=== PATIENT | male | born 1980 | race Caucasian/White ===

== ENCOUNTER 2020-03-25 14:26 | Inpatient (IN) | payer OTHER, SELFPAY ==
[~2020-03-25] VITALS: Ht 177.8 cm; Wt 96.6 kg
[2020-03-25 14:34] VITALS: BP_SYST 149
[2020-03-25] MEDS ORDERED: AMLO5TAB4 PO (14:39)
[2020-03-25] MEDS ORDERED: DEXAMETHASONE SOD PHOSPHATE 10 MG/ML VIAL IVP ONE (14:45)
[2020-03-25] MEDS ORDERED: NACL 0.9% 1,000 ML IV ONE (14:45)
[2020-03-25] MEDS ORDERED: cefTRIAXone 1 GM IVPB PREMIX 50 ML IV ONE (14:45)
[2020-03-25] MEDS ORDERED: DEXAMETHASONE SOD PHOSPHATE 10 MG/ML VIAL ONE (14:48)
[2020-03-25 14:56] LABS: BASOPHILS % (AUTO) 0.3 % (0.0-2.0); HEMATOCRIT 43.5 % (36-54); HEMOGLOBIN 15.1 g/dL (14.0-18.0); LYMPHOCYTES # (AUTO) 0.9 K/uL (1.0-5.5); LYMPHOCYTES % (AUTO) 17.6 % (20.5-51.5); MEAN CORPUSCULAR HEMOGLOBIN 29 pg (27-31); MEAN CORPUSCULAR HGB CONC 35 % (32-36); MEAN CORPUSCULAR VOLUME 83 fL (79.0-98.0); MONOCYTES # (AUTO) 0.3 K/uL (0.0-1.0); MONOCYTES % (AUTO) 6.2 % (1.7-9.3); NEUTROPHILS % (AUTO) 75.9 % (40.0-70.0); PLATELET COUNT (AUTO) 157 K/uL (130-430); RED BLOOD CELL COUNT(AUTO) 5.26 MIL/uL (4.2-6.2); RED CELL DISTRIBUTION WIDTH 13.6 % (9.0-15.0); WHITE BLOOD COUNT (AUTO) 5.3 K/uL (4.8-10.8)
[2020-03-25 15:34] LABS: CALCIUM 8.1 mg/dL (8.4-11.0); CREATININE 1.01 mg/dL (0.55-1.30); POTASSIUM 3.9 mmol/L (3.5-5.1); PROTHROMBIN TIME 9.9 SECS (9.5-12.5)
[2020-03-25 15:52] LABS: ALBUMIN 3.3 g/dL (3.4-4.8); TOTAL BILIRUBIN 0.4 mg/dL (0.0-1.0)
[2020-03-25 16:14] LABS: CREATINE KINASE MB 0.7 ng/mL (0-3.6)
[2020-03-25] MEDS ORDERED: ENALAPRILAT DIHYDRATE 1.25 MG/ML VIAL IVP ONE (16:15)
[2020-03-25] MEDS ORDERED: ACETAMINOPHEN 500 MG TABLET PO ONE (17:15)
[2020-03-25] MEDS ORDERED: ENOXAPARIN SODIUM 100 MG/ML SYRINGE SUBCUT ONE (18:00)
[2020-03-25] MEDS ORDERED: ALBUTEROL SULFATE 0.083% 2.5 MG/3 ML VIAL.NEB INH PRN (18:30)
[2020-03-25] MEDS ORDERED: DEXAMETHASONE SOD PHOSPHATE 10 MG/ML VIAL IVP SCH (18:30)
[2020-03-25] MEDS ORDERED: IPRATROPIUM BROM 0.5 MG/2.5 ML VIAL.NEB (ATROVENT) INH PRN (18:30)
[2020-03-25] MEDS ORDERED: DEXAMETHASONE SOD PHOSPHATE 4 MG/ML VIAL IVP ONE (18:45)
[2020-03-25] MEDS ORDERED: DOXYCYCLINE HYCLATE 100 MG in D5W 100 ML IV SCH (18:45)
[2020-03-25 19:00] LABS: C-REACTIVE PROTEIN QUANT 11.3 mg/dL (0-0.5)
[2020-03-25] MEDS ORDERED: IVERMECTIN 3 MG TABLET PO ONE (19:00)
[2020-03-25] MEDS ORDERED: ALBUTEROL SULFATE 0.083% 2.5 MG/3 ML VIAL.NEB INH SCH (19:00)
[2020-03-25] MEDS ORDERED: IPRATROPIUM BROM 0.5 MG/2.5 ML VIAL.NEB (ATROVENT) INH SCH (19:00)
[2020-03-25] MEDS ORDERED: DOXYCYCLINE HYCLATE 100 MG in D5W 100 ML IV ONE (19:00)
[2020-03-25] MEDS ORDERED: AZITHROMYCIN 500 MG in NS 250 ML IV SCH (19:00)
[2020-03-25] MEDS ORDERED: DEXAMETHASONE SOD PHOSPHATE 4 MG/ML VIAL ONE (19:54)
[2020-03-25] MEDS: ALBUTEROL MDI INHALATION 8 GM INH INH SCH (21:00)
[2020-03-26] VITALS (19 sets, daily range): BP systolic 135–168
[2020-03-26 04:48] LABS: ALBUMIN 2.8 g/dL (3.4-4.8); CALCIUM 8.5 mg/dL (8.4-11.0); CREATININE 1.01 mg/dL (0.55-1.30); POTASSIUM 4.3 mmol/L (3.5-5.1); TOTAL BILIRUBIN 0.3 mg/dL (0.0-1.0)
[2020-03-26 05:33] LABS: CKMB RELATIVE INDEX 0.1 (0.0-2.9); CREATINE KINASE MB 1.1 ng/mL (0-3.6)
[2020-03-26] MEDS ORDERED: DEXAMETHASONE SOD PHOSPHATE 10 MG/ML VIAL ONE (07:54)
[2020-03-26] MEDS ORDERED: ENOXAPARIN SODIUM 40 MG/0.4 ML SYRINGE ONE (07:54)
[2020-03-26] MEDS: cefTRIAXone 1 GM in D5W 50 ML IV SCH (07:54)
[2020-03-26] MEDS: ENOXAPARIN SODIUM 40 MG/0.4 ML SYRINGE SUBCUT SCH ×2 (07:55→21:01)
[2020-03-26] MEDS: DEXAMETHASONE SOD PHOSPHATE 10 MG/ML VIAL IVP SCH (07:55)
[2020-03-26] MEDS: DOXYCYCLINE HYCLATE 100 MG in D5W 100 ML IV SCH ×2 (08:58→21:04)
[2020-03-26] MEDS ORDERED: BARICITINIB -Non-Formulary 2 MG TABLET PO ONE (09:00)
[2020-03-26] MEDS: ALBUTEROL MDI INHALATION 8 GM INH INH SCH ×4 (09:00→21:03)
[2020-03-26] MEDS ORDERED: DEXAMETHASONE SOD PHOSPHATE 10 MG/ML VIAL IVP ONE (09:00)
[2020-03-26] MEDS: NACL 0.9% 1,000 ML IV SCH ×2 (09:41→21:04)
[2020-03-26 11:39] LABS: PROTHROMBIN TIME 9.8 SECS (9.5-12.5)
[2020-03-27] VITALS (24 sets, daily range): BP systolic 146–179
[2020-03-27 06:37] LABS: ALBUMIN 2.8 g/dL (3.4-4.8); CALCIUM 8.6 mg/dL (8.4-11.0); CREATININE 0.86 mg/dL (0.55-1.30); POTASSIUM 4.1 mmol/L (3.5-5.1); TOTAL BILIRUBIN 0.5 mg/dL (0.0-1.0)
[2020-03-27] MEDS: DEXAMETHASONE SOD PHOSPHATE 10 MG/ML VIAL IVP SCH (08:06)
[2020-03-27] MEDS: cefTRIAXone 1 GM in D5W 50 ML IV SCH (08:06)
[2020-03-27] MEDS: ENOXAPARIN SODIUM 40 MG/0.4 ML SYRINGE SUBCUT SCH ×2 (08:06→21:00)
[2020-03-27] MEDS: DOXYCYCLINE HYCLATE 100 MG in D5W 100 ML IV SCH ×2 (09:00→21:01)
[2020-03-27] MEDS: ALBUTEROL MDI INHALATION 8 GM INH INH SCH ×4 (09:00→21:00)
[2020-03-27] MEDS ORDERED: IVERMECTIN 3 MG TABLET PO ONE (09:00)
[2020-03-27] MEDS: NACL 0.9% 1,000 ML IV SCH (11:59)
[2020-03-27] MEDS ORDERED: hydrALAZINE HCL 20 MG/ML VIAL ONE (13:23)
[2020-03-27] MEDS: hydrALAZINE HCL 20 MG/ML VIAL IVP PRN (22:13)
[2020-03-28] VITALS (23 sets, daily range): BP systolic 144–184
[2020-03-28] MEDS: hydrALAZINE HCL 20 MG/ML VIAL IVP PRN (06:15)
[2020-03-28] MEDS: NACL 0.9% 1,000 ML IV SCH ×2 (06:16→14:47)
[2020-03-28 06:51] LABS: ALBUMIN 2.9 g/dL (3.4-4.8); CALCIUM 8.6 mg/dL (8.4-11.0); CREATININE 0.67 mg/dL (0.55-1.30); POTASSIUM 3.7 mmol/L (3.5-5.1); TOTAL BILIRUBIN 0.7 mg/dL (0.0-1.0)
[2020-03-28] MEDS: cefTRIAXone 1 GM in D5W 50 ML IV SCH (08:15)
[2020-03-28] MEDS: ALBUTEROL MDI INHALATION 8 GM INH INH SCH ×4 (08:46→20:46)
[2020-03-28] MEDS: DEXAMETHASONE SOD PHOSPHATE 10 MG/ML VIAL IVP SCH (08:55)
[2020-03-28] MEDS: ENOXAPARIN SODIUM 40 MG/0.4 ML SYRINGE SUBCUT SCH ×2 (08:55→20:47)
[2020-03-28] MEDS: BARICITINIB -Non-Formulary 2 MG TABLET PO SCH (08:55)
[2020-03-28] MEDS: DOXYCYCLINE HYCLATE 100 MG in D5W 100 ML IV SCH ×2 (09:23→20:46)
[2020-03-28] MEDS: LABETALOL 100 MG/ 20ML VIAL IVP PRN ×2 (11:13→15:43)
[2020-03-29] VITALS (25 sets, daily range): BP systolic 104–183
[2020-03-29] MEDS: LABETALOL 100 MG/ 20ML VIAL IVP PRN ×3 (02:21→20:15)
[2020-03-29] MEDS: NACL 0.9% 1,000 ML IV SCH ×2 (04:42→17:00)
[2020-03-29 06:41] LABS: BASOPHILS % (AUTO) 0.1 % (0.0-2.0); HEMATOCRIT 45.7 % (36-54); HEMOGLOBIN 15.2 g/dL (14.0-18.0); LYMPHOCYTES % (AUTO) 8.7 % (20.5-51.5); MEAN CORPUSCULAR HEMOGLOBIN 28 pg (27-31); MEAN CORPUSCULAR HGB CONC 33 % (32-36); MEAN CORPUSCULAR VOLUME 85 fL (79.0-98.0); MONOCYTES # (AUTO) 0.8 K/uL (0.0-1.0); MONOCYTES % (AUTO) 6.9 % (1.7-9.3); NEUTROPHILS # (AUTO) 9.4 K/uL (1.8-7.7); NEUTROPHILS % (AUTO) 84.3 % (40.0-70.0); PLATELET COUNT (AUTO) 259 K/uL (130-430); RED BLOOD CELL COUNT(AUTO) 5.38 MIL/uL (4.2-6.2); RED CELL DISTRIBUTION WIDTH 13.9 % (9.0-15.0); WHITE BLOOD COUNT (AUTO) 11.2 K/uL (4.8-10.8)
[2020-03-29 07:15] LABS: ALBUMIN 2.9 g/dL (3.4-4.8); CALCIUM 8.6 mg/dL (8.4-11.0); CREATININE 0.71 mg/dL (0.55-1.30); TOTAL BILIRUBIN 0.8 mg/dL (0.0-1.0)
[2020-03-29] MEDS: BARICITINIB -Non-Formulary 2 MG TABLET PO SCH (08:00)
[2020-03-29] MEDS: cefTRIAXone 1 GM in D5W 50 ML IV SCH (08:15)
[2020-03-29] MEDS: DOXYCYCLINE HYCLATE 100 MG in D5W 100 ML IV SCH ×2 (08:30→21:00)
[2020-03-29] MEDS: DEXAMETHASONE SOD PHOSPHATE 10 MG/ML VIAL IVP SCH (08:30)
[2020-03-29] MEDS: ENOXAPARIN SODIUM 40 MG/0.4 ML SYRINGE SUBCUT SCH ×2 (09:00→20:15)
[2020-03-29] MEDS: ALBUTEROL MDI INHALATION 8 GM INH INH SCH ×4 (09:21→20:32)
[2020-03-29] MEDS: hydrALAZINE HCL 20 MG/ML VIAL IVP PRN ×2 (09:40→22:00)
[2020-03-29 09:46] LABS: ALBUMIN 2.9 g/dL (3.4-4.8); CALCIUM 8.3 mg/dL (8.4-11.0); CREATININE 0.76 mg/dL (0.55-1.30); POTASSIUM 3.9 mmol/L (3.5-5.1)
[2020-03-30] VITALS (26 sets, daily range): BP systolic 138–193
[2020-03-30] MEDS: NACL 0.9% 1,000 ML IV SCH ×3 (03:54→19:40)
[2020-03-30] MEDS: LABETALOL 100 MG/ 20ML VIAL IVP PRN ×2 (06:29→20:30)
[2020-03-30] MEDS: ALBUTEROL MDI INHALATION 8 GM INH INH SCH ×4 (08:14→22:27)
[2020-03-30 08:47] LABS: ALBUMIN 2.6 g/dL (3.4-4.8); CALCIUM 8.4 mg/dL (8.4-11.0); CREATININE 0.72 mg/dL (0.55-1.30); TOTAL BILIRUBIN 0.8 mg/dL (0.0-1.0)
[2020-03-30] MEDS: DOXYCYCLINE HYCLATE 100 MG in D5W 100 ML IV SCH ×2 (09:00→21:33)
[2020-03-30] MEDS: cefTRIAXone 1 GM in D5W 50 ML IV SCH (09:00)
[2020-03-30] MEDS: ENOXAPARIN SODIUM 40 MG/0.4 ML SYRINGE SUBCUT SCH ×2 (09:00→21:34)
[2020-03-30] MEDS: BARICITINIB -Non-Formulary 2 MG TABLET PO SCH (09:00)
[2020-03-30] MEDS: DEXAMETHASONE SOD PHOSPHATE 10 MG/ML VIAL IVP SCH (09:00)
[2020-03-30] MEDS: hydrALAZINE HCL 20 MG/ML VIAL IVP PRN (22:11)
[2020-03-31] VITALS (21 sets, daily range): BP systolic 134–185
[2020-03-31] MEDS: LABETALOL 100 MG/ 20ML VIAL IVP PRN (01:30)
[2020-03-31] MEDS: hydrALAZINE HCL 20 MG/ML VIAL IVP PRN ×2 (05:00→10:20)
[2020-03-31 05:54] LABS: ALBUMIN 2.7 g/dL (3.4-4.8); CALCIUM 8.8 mg/dL (8.4-11.0); CREATININE 0.8 mg/dL (0.55-1.30); POTASSIUM 4.3 mmol/L (3.5-5.1); TOTAL BILIRUBIN 0.9 mg/dL (0.0-1.0)
[2020-03-31] MEDS: NACL 0.9% 1,000 ML IV SCH ×2 (08:49→22:20)
[2020-03-31] MEDS: cefTRIAXone 1 GM in D5W 50 ML IV SCH (08:49)
[2020-03-31] MEDS: DOXYCYCLINE HYCLATE 100 MG in D5W 100 ML IV SCH ×2 (08:49→20:25)
[2020-03-31] MEDS: ALBUTEROL MDI INHALATION 8 GM INH INH SCH ×5 (08:49→22:40)
[2020-03-31] MEDS: DEXAMETHASONE SOD PHOSPHATE 10 MG/ML VIAL IVP SCH (08:52)
[2020-03-31] MEDS: BARICITINIB -Non-Formulary 2 MG TABLET PO SCH (08:52)
[2020-03-31] MEDS ORDERED: DEXAMETHASONE SOD PHOSPHATE 10 MG/ML VIAL ONE (08:53)
[2020-03-31] MEDS: ENOXAPARIN SODIUM 40 MG/0.4 ML SYRINGE SUBCUT SCH ×2 (08:53→20:25)
[2020-03-31] MEDS ORDERED: PROPOFOL DRIP 100 ML IV ONE (13:25)
[2020-04-01] VITALS (22 sets, daily range): BP systolic 116–178
[2020-04-01] MEDS: LABETALOL 100 MG/ 20ML VIAL IVP PRN (04:34)
[2020-04-01 06:54] LABS: BASOPHILS % (AUTO) 0.2 % (0.0-2.0); EOSINOPHILS % (AUTO) 0.1 % (0.0-4.0); HEMATOCRIT 43.6 % (36-54); HEMOGLOBIN 14.7 g/dL (14.0-18.0); LYMPHOCYTES # (AUTO) 0.7 K/uL (1.0-5.5); LYMPHOCYTES % (AUTO) 6.3 % (20.5-51.5); MEAN CORPUSCULAR HEMOGLOBIN 28 pg (27-31); MEAN CORPUSCULAR HGB CONC 34 % (32-36); MEAN CORPUSCULAR VOLUME 84 fL (79.0-98.0); MONOCYTES # (AUTO) 0.5 K/uL (0.0-1.0); MONOCYTES % (AUTO) 4.3 % (1.7-9.3); NEUTROPHILS # (AUTO) 9.9 K/uL (1.8-7.7); NEUTROPHILS % (AUTO) 89.1 % (40.0-70.0); PLATELET COUNT (AUTO) 359 K/uL (130-430); RED BLOOD CELL COUNT(AUTO) 5.17 MIL/uL (4.2-6.2); RED CELL DISTRIBUTION WIDTH 13.7 % (9.0-15.0); WHITE BLOOD COUNT (AUTO) 11.1 K/uL (4.8-10.8)
[2020-04-01] MEDS: ALBUTEROL MDI INHALATION 8 GM INH INH SCH ×3 (07:07→16:16)
[2020-04-01 07:19] LABS: ALBUMIN 2.5 g/dL (3.4-4.8); CALCIUM 8.6 mg/dL (8.4-11.0); CREATININE 0.81 mg/dL (0.55-1.30); POTASSIUM 4.4 mmol/L (3.5-5.1); TOTAL BILIRUBIN 0.9 mg/dL (0.0-1.0)
[2020-04-01] MEDS ORDERED: MORPHINE 4 MG/ML INJ. SYRINGE IVP PRN (08:45)
[2020-04-01] MEDS ORDERED: DEXMEDETOMIDINE HCL 400 MCG in NS 96 ML IV PRN (08:45)
[2020-04-01] MEDS: DEXAMETHASONE SOD PHOSPHATE 10 MG/ML VIAL IVP SCH (08:55)
[2020-04-01] MEDS: DOXYCYCLINE HYCLATE 100 MG in D5W 100 ML IV SCH ×2 (08:56→20:45)
[2020-04-01] MEDS: cefTRIAXone 1 GM in D5W 50 ML IV SCH (08:56)
[2020-04-01] MEDS: ENOXAPARIN SODIUM 40 MG/0.4 ML SYRINGE SUBCUT SCH ×2 (08:58→20:46)
[2020-04-01] MEDS: BARICITINIB -Non-Formulary 2 MG TABLET PO SCH (09:00)
[2020-04-01] MEDS: NACL 0.9% 1,000 ML IV SCH (11:40)
[2020-04-02] VITALS (27 sets, daily range): BP systolic 75–173
[2020-04-02] MEDS: NACL 0.9% 1,000 ML IV SCH ×2 (01:35→15:35)
[2020-04-02 05:07] LABS: HEPATITIS A AB, IgM Negative (Negative); HEPATITIS B CORE AB, IgM Negative (Negative); HEPATITIS B SURFACE AG Negative (Negative)
[2020-04-02 06:55] LABS: ALBUMIN 2.4 g/dL (3.4-4.8); CALCIUM 8.8 mg/dL (8.4-11.0); CREATININE 0.83 mg/dL (0.55-1.30); POTASSIUM 4.5 mmol/L (3.5-5.1)
[2020-04-02] MEDS ORDERED: NALOXONE HCL 0.4 MG/ML AMP (NARCAN) IVP PRN (08:30)
[2020-04-02] MEDS ORDERED: MORPHINE I.V. DRIP 100 ML IV ONE (08:37)
[2020-04-02] MEDS ORDERED: PROPOFOL DRIP 100 ML IV ONE (08:38)
[2020-04-02] MEDS: DOXYCYCLINE HYCLATE 100 MG in D5W 100 ML IV SCH ×2 (09:56→20:46)
[2020-04-02] MEDS: DEXAMETHASONE SOD PHOSPHATE 10 MG/ML VIAL IVP SCH (09:57)
[2020-04-02] MEDS: ENOXAPARIN SODIUM 40 MG/0.4 ML SYRINGE SUBCUT SCH ×2 (09:58→20:58)
[2020-04-02] MEDS ORDERED: ETOMIDATE 20 MG/ 10 ML VIAL (AMIDATE) IVP ONE (10:09)
[2020-04-02] MEDS: ROCURONIUM BROMIDE 10 MG/ML (ZEMURON) IV SCH ×4 (10:09→21:04)
[2020-04-02] MEDS ORDERED: ROCURONIUM BROMIDE 10 MG/ML (ZEMURON) IV ONE (10:09)
[2020-04-02] MEDS: PROPOFOL DRIP 100 ML IV PRN ×2 (10:17→21:10)
[2020-04-02] MEDS: MORPHINE I.V. DRIP 100 ML IV PRN (10:19)
[2020-04-02] MEDS: ALBUTEROL MDI INHALATION 8 GM INH INH SCH ×2 (11:43→15:30)
[2020-04-02] MEDS: BARICITINIB -Non-Formulary 2 MG TABLET PO SCH (15:38)
[2020-04-02] MEDS ORDERED: NOREPINEPHRINE BITARTRATE 16 MG in NS 234 ML IV PRN (16:45)
[2020-04-02] MEDS ORDERED: NACL 0.9% 1,000 ML IV ONE (16:45)
[2020-04-02] MEDS: SODIUM BICARBONATE 650 MG TABLET NG SCH (20:58)
[2020-04-03] VITALS (26 sets, daily range): BP systolic 99–157
[2020-04-03] MEDS: ROCURONIUM BROMIDE 10 MG/ML (ZEMURON) IV SCH ×4 (02:00→14:00)
[2020-04-03] MEDS: PROPOFOL DRIP 100 ML IV PRN ×5 (03:08→22:29)
[2020-04-03] MEDS: NACL 0.9% 1,000 ML IV SCH ×2 (03:40→18:28)
[2020-04-03 07:04] LABS: ALBUMIN 2.2 g/dL (3.4-4.8); CALCIUM 7.9 mg/dL (8.4-11.0); CREATININE 3.45 mg/dL (0.55-1.30); TOTAL BILIRUBIN 1.3 mg/dL (0.0-1.0)
[2020-04-03] MEDS: ALBUTEROL MDI INHALATION 8 GM INH INH SCH ×3 (07:40→19:45)
[2020-04-03 07:56] LABS: POTASSIUM 6.4 mmol/L (3.5-5.1)
[2020-04-03] MEDS ORDERED: HEPARIN SODIUM,PORCINE 5,000 UNITS/ML VIAL ONE ×2 (08:19→19:41)
[2020-04-03] MEDS ORDERED: SODIUM POLYSTYRENE SULFONATE 15 GM/60 ML UDBTL PO ONE (08:30)
[2020-04-03] MEDS: SODIUM BICARBONATE 650 MG TABLET NG SCH ×2 (08:38→20:27)
[2020-04-03] MEDS: ENOXAPARIN SODIUM 40 MG/0.4 ML SYRINGE SUBCUT SCH (08:39)
[2020-04-03] MEDS: DEXAMETHASONE SOD PHOSPHATE 10 MG/ML VIAL IVP SCH (08:40)
[2020-04-03] MEDS: BARICITINIB -Non-Formulary 2 MG TABLET PO SCH (08:41)
[2020-04-03] MEDS ORDERED: CALCIUM GLUCONATE 2 GM in NS 100 ML IV ONE (08:45)
[2020-04-03] MEDS ORDERED: LR 500 ML IV ONE (09:30)
[2020-04-03] MEDS ORDERED: FUROSEMIDE 40 MG/4 ML VIAL IVP ONE (10:00)
[2020-04-03] MEDS ORDERED: CALCIUM GLUCONATE 1 GM/10 ML VIAL IVP ONE (10:00)
[2020-04-03] MEDS: DOXYCYCLINE HYCLATE 100 MG in D5W 100 ML IV SCH ×2 (10:30→20:27)
[2020-04-03] MEDS ORDERED: MIDAZOLAM HCL IN 0.9 % NACL/PF 50 ML IV PRN (12:00)
[2020-04-03] MEDS ORDERED: MIDAZOLAM IN NACL,ISO-OSMOT/PF 100 ML IV ONE (12:01)
[2020-04-03] MEDS ORDERED: COMMUNICATION ORDER XX ONE (12:15)
[2020-04-04] VITALS (32 sets, daily range): BP systolic 100–159
[2020-04-04] MEDS ORDERED: HEPARIN SODIUM, PORCINE 10,000 UNITS/ 10 ML VIAL MC ONE (02:00)
[2020-04-04] MEDS: PROPOFOL DRIP 100 ML IV PRN ×3 (04:12→21:37)
[2020-04-04] MEDS: NACL 0.9% 1,000 ML IV SCH ×2 (06:34→19:40)
[2020-04-04] MEDS: ALBUTEROL MDI INHALATION 8 GM INH INH SCH ×4 (07:30→21:16)
[2020-04-04] MEDS: DOXYCYCLINE HYCLATE 100 MG in D5W 100 ML IV SCH ×2 (09:16→20:53)
[2020-04-04] MEDS: DEXAMETHASONE SOD PHOSPHATE 10 MG/ML VIAL IVP SCH (09:16)
[2020-04-04] MEDS: SODIUM BICARBONATE 650 MG TABLET NG SCH ×2 (09:16→20:54)
[2020-04-04 10:53] LABS: BASOPHILS # (AUTO) 0.1 K/uL (0.0-0.2); BASOPHILS % (AUTO) 0.5 % (0.0-2.0); HEMATOCRIT 40.5 % (36-54); HEMOGLOBIN 13.5 g/dL (14.0-18.0); LYMPHOCYTES # (AUTO) 0.5 K/uL (1.0-5.5); LYMPHOCYTES % (AUTO) 4.4 % (20.5-51.5); MEAN CORPUSCULAR HEMOGLOBIN 29 pg (27-31); MEAN CORPUSCULAR HGB CONC 33 % (32-36); MEAN CORPUSCULAR VOLUME 86 fL (79.0-98.0); MONOCYTES # (AUTO) 0.7 K/uL (0.0-1.0); MONOCYTES % (AUTO) 5.9 % (1.7-9.3); NEUTROPHILS # (AUTO) 10.9 K/uL (1.8-7.7); NEUTROPHILS % (AUTO) 89.2 % (40.0-70.0); PLATELET COUNT (AUTO) 323 K/uL (130-430); RED CELL DISTRIBUTION WIDTH 14.2 % (9.0-15.0); WHITE BLOOD COUNT (AUTO) 12.3 K/uL (4.8-10.8)
[2020-04-04 11:03] LABS: CREATININE 4.4 mg/dL (0.55-1.30); POTASSIUM 4.3 mmol/L (3.5-5.1)
[2020-04-04 11:09] LABS: ALBUMIN 2.4 g/dL (3.4-4.8)
[2020-04-04] MEDS ORDERED: HEPARIN SODIUM,PORCINE 5,000 UNITS/ML VIAL ONE (13:11)
[2020-04-04] MEDS ORDERED: MIDAZOLAM IN NACL,ISO-OSMOT/PF 100 ML IV ONE (14:53)
[2020-04-05] VITALS (29 sets, daily range): BP systolic 109–177
[2020-04-05] MEDS: hydrALAZINE HCL 20 MG/ML VIAL IVP PRN (05:36)
[2020-04-05] MEDS: PROPOFOL DRIP 100 ML IV PRN (06:03)
[2020-04-05 06:52] LABS: ALBUMIN 2.5 g/dL (3.4-4.8); CALCIUM 8.5 mg/dL (8.4-11.0); CREATININE 4.77 mg/dL (0.55-1.30); POTASSIUM 3.8 mmol/L (3.5-5.1); TOTAL BILIRUBIN 1.1 mg/dL (0.0-1.0)
[2020-04-05] MEDS: MORPHINE I.V. DRIP 100 ML IV PRN (07:15)
[2020-04-05] MEDS ORDERED: VECURONIUM BROMIDE 10 MG/VIAL (NORCURON) ONE (07:27)
[2020-04-05] MEDS: ALBUTEROL MDI INHALATION 8 GM INH INH SCH ×4 (07:38→18:54)
[2020-04-05] MEDS: NACL 0.9% 1,000 ML IV SCH ×2 (07:50→23:07)
[2020-04-05] MEDS: SODIUM BICARBONATE 650 MG TABLET NG SCH ×2 (07:54→21:00)
[2020-04-05] MEDS: DEXAMETHASONE SOD PHOSPHATE 10 MG/ML VIAL IVP SCH (07:54)
[2020-04-05 08:45] LABS: BASOPHILS # (AUTO) 0.1 K/uL (0.0-0.2); BASOPHILS % (AUTO) 0.3 % (0.0-2.0); EOSINOPHILS % (AUTO) 0.3 % (0.0-4.0); HEMATOCRIT 40.3 % (36-54); HEMOGLOBIN 13.2 g/dL (14.0-18.0); LYMPHOCYTES # (AUTO) 1.6 K/uL (1.0-5.5); LYMPHOCYTES % (AUTO) 9.6 % (20.5-51.5); MEAN CORPUSCULAR HEMOGLOBIN 28 pg (27-31); MEAN CORPUSCULAR HGB CONC 33 % (32-36); MEAN CORPUSCULAR VOLUME 86 fL (79.0-98.0); MONOCYTES # (AUTO) 0.5 K/uL (0.0-1.0); MONOCYTES % (AUTO) 2.9 % (1.7-9.3); NEUTROPHILS # (AUTO) 14.6 K/uL (1.8-7.7); NEUTROPHILS % (AUTO) 86.9 % (40.0-70.0); PLATELET COUNT (AUTO) 346 K/uL (130-430); RED BLOOD CELL COUNT(AUTO) 4.68 MIL/uL (4.2-6.2); RED CELL DISTRIBUTION WIDTH 14.1 % (9.0-15.0); WHITE BLOOD COUNT (AUTO) 16.9 K/uL (4.8-10.8)
[2020-04-06] VITALS (29 sets, daily range): BP systolic 103–150
[2020-04-06] MEDS ORDERED: VECURONIUM BROMIDE 10 MG/VIAL (NORCURON) ONE (01:35)
[2020-04-06] MEDS ORDERED: MIDAZOLAM IN NACL,ISO-OSMOT/PF 100 ML IV ONE (02:52)
[2020-04-06] MEDS: ALBUTEROL MDI INHALATION 8 GM INH INH SCH ×4 (07:12→19:27)
[2020-04-06] MEDS: DEXAMETHASONE SOD PHOSPHATE 10 MG/ML VIAL IVP SCH (08:19)
[2020-04-06] MEDS: SODIUM BICARBONATE 650 MG TABLET NG SCH ×2 (08:19→21:51)
[2020-04-06 09:44] LABS: BASOPHILS % (AUTO) 0.2 % (0.0-2.0); EOSINOPHILS % (AUTO) 0.2 % (0.0-4.0); HEMATOCRIT 35.4 % (36-54); HEMOGLOBIN 11.7 g/dL (14.0-18.0); LYMPHOCYTES # (AUTO) 0.9 K/uL (1.0-5.5); LYMPHOCYTES % (AUTO) 8.4 % (20.5-51.5); MEAN CORPUSCULAR HEMOGLOBIN 28 pg (27-31); MEAN CORPUSCULAR HGB CONC 33 % (32-36); MEAN CORPUSCULAR VOLUME 86 fL (79.0-98.0); MONOCYTES # (AUTO) 0.5 K/uL (0.0-1.0); MONOCYTES % (AUTO) 4.5 % (1.7-9.3); NEUTROPHILS # (AUTO) 9.3 K/uL (1.8-7.7); NEUTROPHILS % (AUTO) 86.7 % (40.0-70.0); PLATELET COUNT (AUTO) 238 K/uL (130-430); RED BLOOD CELL COUNT(AUTO) 4.11 MIL/uL (4.2-6.2); RED CELL DISTRIBUTION WIDTH 13.9 % (9.0-15.0); WHITE BLOOD COUNT (AUTO) 10.7 K/uL (4.8-10.8)
[2020-04-06 10:06] LABS: ALBUMIN 2.2 g/dL (3.4-4.8); CALCIUM 8.6 mg/dL (8.4-11.0); CREATININE 7.23 mg/dL (0.55-1.30); POTASSIUM 4.4 mmol/L (3.5-5.1); TOTAL BILIRUBIN 0.9 mg/dL (0.0-1.0)
[2020-04-06] MEDS ORDERED: HEPARIN SODIUM,PORCINE 5,000 UNITS/ML VIAL ONE (10:57)
[2020-04-06] MEDS: NACL 0.9% 1,000 ML IV SCH (11:49)
[2020-04-07] VITALS (27 sets, daily range): BP systolic 113–152
[2020-04-07] MEDS: NACL 0.9% 1,000 ML IV SCH ×2 (00:19→14:20)
[2020-04-07] MEDS: VECURONIUM BROMIDE 50 MG in NS 50 ML IV PRN ×2 (00:20→11:00)
[2020-04-07] MEDS: MORPHINE I.V. DRIP 100 ML IV PRN ×2 (05:25→05:43)
[2020-04-07] MEDS ORDERED: MIDAZOLAM IN NACL,ISO-OSMOT/PF 100 ML IV ONE (05:25)
[2020-04-07] MEDS: ALBUTEROL MDI INHALATION 8 GM INH INH SCH ×4 (06:58→20:22)
[2020-04-07 07:35] LABS: BASOPHILS % (AUTO) 0.2 % (0.0-2.0); EOSINOPHILS % (AUTO) 0.4 % (0.0-4.0); HEMATOCRIT 36.3 % (36-54); LYMPHOCYTES # (AUTO) 0.6 K/uL (1.0-5.5); LYMPHOCYTES % (AUTO) 4.5 % (20.5-51.5); MEAN CORPUSCULAR HEMOGLOBIN 29 pg (27-31); MEAN CORPUSCULAR HGB CONC 33 % (32-36); MEAN CORPUSCULAR VOLUME 87 fL (79.0-98.0); MONOCYTES # (AUTO) 0.7 K/uL (0.0-1.0); MONOCYTES % (AUTO) 5.8 % (1.7-9.3); NEUTROPHILS % (AUTO) 89.1 % (40.0-70.0); PLATELET COUNT (AUTO) 253 K/uL (130-430); RED BLOOD CELL COUNT(AUTO) 4.19 MIL/uL (4.2-6.2); RED CELL DISTRIBUTION WIDTH 13.8 % (9.0-15.0); WHITE BLOOD COUNT (AUTO) 12.3 K/uL (4.8-10.8)
[2020-04-07 07:47] LABS: ALBUMIN 2.4 g/dL (3.4-4.8); CALCIUM 8.9 mg/dL (8.4-11.0); CREATININE 6.72 mg/dL (0.55-1.30); POTASSIUM 5.1 mmol/L (3.5-5.1); TOTAL BILIRUBIN 0.7 mg/dL (0.0-1.0)
[2020-04-07] MEDS: DEXAMETHASONE SOD PHOSPHATE 10 MG/ML VIAL IVP SCH (09:27)
[2020-04-07] MEDS: SODIUM BICARBONATE 650 MG TABLET NG SCH ×2 (09:27→21:03)
[2020-04-07 10:14] LABS: BASOPHILS % (AUTO) 0.1 % (0.0-2.0); EOSINOPHILS % (AUTO) 0.4 % (0.0-4.0); HEMATOCRIT 36.2 % (36-54); HEMOGLOBIN 11.9 g/dL (14.0-18.0); LYMPHOCYTES # (AUTO) 0.8 K/uL (1.0-5.5); LYMPHOCYTES % (AUTO) 6.6 % (20.5-51.5); MEAN CORPUSCULAR HEMOGLOBIN 29 pg (27-31); MEAN CORPUSCULAR HGB CONC 33 % (32-36); MEAN CORPUSCULAR VOLUME 87 fL (79.0-98.0); MONOCYTES # (AUTO) 0.8 K/uL (0.0-1.0); MONOCYTES % (AUTO) 6.4 % (1.7-9.3); NEUTROPHILS # (AUTO) 10.8 K/uL (1.8-7.7); NEUTROPHILS % (AUTO) 86.5 % (40.0-70.0); PLATELET COUNT (AUTO) 247 K/uL (130-430); RED BLOOD CELL COUNT(AUTO) 4.16 MIL/uL (4.2-6.2); RED CELL DISTRIBUTION WIDTH 14.2 % (9.0-15.0); WHITE BLOOD COUNT (AUTO) 12.4 K/uL (4.8-10.8)
[2020-04-07] MEDS: PROPOFOL DRIP 100 ML IV PRN ×2 (10:30→17:20)
[2020-04-07] MEDS: ACETAMINOPHEN 650 MG/20.3 ML UDC GT PRN (10:30)
[2020-04-07 11:27] LABS: ALBUMIN 2.4 g/dL (3.4-4.8); CALCIUM 9.1 mg/dL (8.4-11.0); CREATININE 6.91 mg/dL (0.55-1.30); POTASSIUM 5.2 mmol/L (3.5-5.1); TOTAL BILIRUBIN 0.7 mg/dL (0.0-1.0)
[2020-04-07] MEDS ORDERED: HEPARIN SODIUM, PORCINE 10,000 UNITS/ 10 ML VIAL ONE (14:29)
[2020-04-07] MEDS ORDERED: VECURONIUM BROMIDE 10 MG/VIAL (NORCURON) ONE ×2 (21:32→21:35)
[2020-04-08] VITALS (28 sets, daily range): BP systolic 115–156
[2020-04-08 06:21] LABS: BASOPHILS % (AUTO) 0.3 % (0.0-2.0); EOSINOPHILS % (AUTO) 0.1 % (0.0-4.0); HEMATOCRIT 35.2 % (36-54); HEMOGLOBIN 11.4 g/dL (14.0-18.0); LYMPHOCYTES # (AUTO) 0.8 K/uL (1.0-5.5); LYMPHOCYTES % (AUTO) 6.3 % (20.5-51.5); MEAN CORPUSCULAR HEMOGLOBIN 28 pg (27-31); MEAN CORPUSCULAR HGB CONC 32 % (32-36); MEAN CORPUSCULAR VOLUME 87 fL (79.0-98.0); MONOCYTES % (AUTO) 7.3 % (1.7-9.3); NEUTROPHILS # (AUTO) 11.3 K/uL (1.8-7.7); PLATELET COUNT (AUTO) 264 K/uL (130-430); RED BLOOD CELL COUNT(AUTO) 4.03 MIL/uL (4.2-6.2); WHITE BLOOD COUNT (AUTO) 13.2 K/uL (4.8-10.8)
[2020-04-08] MEDS: ALBUTEROL MDI INHALATION 8 GM INH INH SCH ×4 (07:00→20:23)
[2020-04-08 07:15] LABS: ALBUMIN 2.4 g/dL (3.4-4.8); CALCIUM 8.8 mg/dL (8.4-11.0); CREATININE 6.46 mg/dL (0.55-1.30); POTASSIUM 5.5 mmol/L (3.5-5.1); TOTAL BILIRUBIN 0.8 mg/dL (0.0-1.0)
[2020-04-08] MEDS: VECURONIUM BROMIDE 50 MG in NS 50 ML IV PRN (07:40)
[2020-04-08] MEDS: PROPOFOL DRIP 100 ML IV PRN ×4 (07:40→23:32)
[2020-04-08] MEDS: SODIUM BICARBONATE 650 MG TABLET NG SCH ×2 (09:44→21:27)
[2020-04-08] MEDS: DEXAMETHASONE SOD PHOSPHATE 10 MG/ML VIAL IVP SCH (09:44)
[2020-04-08] MEDS ORDERED: MIDAZOLAM IN NACL,ISO-OSMOT/PF 100 ML IV ONE (09:49)
[2020-04-08] MEDS: MIDAZOLAM IN NACL,ISO-OSMOT/PF 100 ML IV PRN (10:00)
[2020-04-08] MEDS ORDERED: METOCLOPRAMIDE HCL 10 MG/2 ML VIAL IVP ONE (12:30)
[2020-04-08] MEDS: ACETAMINOPHEN 650 MG/20.3 ML UDC GT PRN ×2 (12:52→23:55)
[2020-04-08] MEDS: NACL 0.9% 1,000 ML IV SCH ×2 (14:14→16:58)
[2020-04-08] MEDS: MORPHINE I.V. DRIP 100 ML IV PRN (15:04)
[2020-04-08] MEDS ORDERED: HEPARIN SODIUM,PORCINE 5,000 UNITS/ML VIAL ONE (15:39)
[2020-04-08] MEDS: METOCLOPRAMIDE HCL 10 MG/2 ML VIAL IVP SCH ×2 (17:19→23:39)
[2020-04-08] MEDS: PEG 400/HYPROMELLOSE/GLYCERIN 15 ML DROPS OP SCH (21:25)
[2020-04-09] VITALS (28 sets, daily range): BP systolic 124–155
[2020-04-09] MEDS: PROPOFOL DRIP 100 ML IV PRN ×4 (03:07→22:12)
[2020-04-09] MEDS: NACL 0.9% 1,000 ML IV SCH ×2 (04:40→18:37)
[2020-04-09] MEDS: METOCLOPRAMIDE HCL 10 MG/2 ML VIAL IVP SCH ×3 (05:30→18:26)
[2020-04-09 06:21] LABS: BASOPHILS % (AUTO) 0.4 % (0.0-2.0); EOSINOPHILS # (AUTO) 0.2 K/uL (0.0-0.4); EOSINOPHILS % (AUTO) 1.7 % (0.0-4.0); HEMATOCRIT 30.7 % (36-54); HEMOGLOBIN 10.4 g/dL (14.0-18.0); LYMPHOCYTES # (AUTO) 0.9 K/uL (1.0-5.5); LYMPHOCYTES % (AUTO) 8.3 % (20.5-51.5); MEAN CORPUSCULAR HEMOGLOBIN 29 pg (27-31); MEAN CORPUSCULAR HGB CONC 34 % (32-36); MEAN CORPUSCULAR VOLUME 86 fL (79.0-98.0); MONOCYTES # (AUTO) 0.6 K/uL (0.0-1.0); MONOCYTES % (AUTO) 5.6 % (1.7-9.3); PLATELET COUNT (AUTO) 255 K/uL (130-430); RED BLOOD CELL COUNT(AUTO) 3.55 MIL/uL (4.2-6.2); RED CELL DISTRIBUTION WIDTH 13.9 % (9.0-15.0); WHITE BLOOD COUNT (AUTO) 10.7 K/uL (4.8-10.8)
[2020-04-09] MEDS: ALBUTEROL MDI INHALATION 8 GM INH INH SCH ×4 (07:00→17:50)
[2020-04-09 07:19] LABS: ALBUMIN 2.3 g/dL (3.4-4.8); CALCIUM 8.3 mg/dL (8.4-11.0); CREATININE 5.91 mg/dL (0.55-1.30); POTASSIUM 4.3 mmol/L (3.5-5.1); TOTAL BILIRUBIN 0.7 mg/dL (0.0-1.0)
[2020-04-09] MEDS: MIDAZOLAM IN NACL,ISO-OSMOT/PF 100 ML IV PRN (08:49)
[2020-04-09] MEDS: PEG 400/HYPROMELLOSE/GLYCERIN 15 ML DROPS OP SCH ×2 (09:04→21:09)
[2020-04-09] MEDS: DEXAMETHASONE SOD PHOSPHATE 10 MG/ML VIAL IVP SCH (09:04)
[2020-04-09] MEDS: SODIUM BICARBONATE 650 MG TABLET NG SCH ×2 (09:04→21:08)
[2020-04-09] MEDS: DOCUSATE SODIUM 100 MG/10 ML UDC PO SCH (09:08)
[2020-04-09] MEDS ORDERED: DOCUSATE SODIUM 100 MG/10 ML UDC ONE (09:09)
[2020-04-09] MEDS ORDERED: HEPARIN SODIUM,PORCINE 5,000 UNITS/ML VIAL SUBCUT ONE (11:15)
[2020-04-09] MEDS: HEPARIN SODIUM,PORCINE 5,000 UNITS/ML VIAL SUBCUT SCH ×2 (14:00→21:12)
[2020-04-09] MEDS: MORPHINE I.V. DRIP 100 ML IV PRN (16:44)
[2020-04-09] MEDS ORDERED: HEPARIN SODIUM,PORCINE 5,000 UNITS/ML VIAL MC ONE (17:30)
[2020-04-09] MEDS ORDERED: COMMUNICATION ORDER XX ONE (17:30)
[2020-04-09] MEDS ORDERED: HEPARIN SODIUM,PORCINE 5,000 UNITS/ML VIAL ONE (21:05)
[2020-04-10] VITALS (26 sets, daily range): BP systolic 125–170
[2020-04-10] MEDS: METOCLOPRAMIDE HCL 10 MG/2 ML VIAL IVP SCH ×4 (00:49→17:30)
[2020-04-10] MEDS: LABETALOL 100 MG/ 20ML VIAL IVP PRN ×3 (01:16→09:14)
[2020-04-10] MEDS: PROPOFOL DRIP 100 ML IV PRN ×4 (02:16→18:44)
[2020-04-10] MEDS: ACETAMINOPHEN 650 MG/20.3 ML UDC GT PRN (03:22)
[2020-04-10] MEDS: HEPARIN SODIUM,PORCINE 5,000 UNITS/ML VIAL SUBCUT SCH ×3 (05:35→21:50)
[2020-04-10 06:41] LABS: ALBUMIN 2.5 g/dL (3.4-4.8); CALCIUM 9.1 mg/dL (8.4-11.0); CREATININE 5.39 mg/dL (0.55-1.30); POTASSIUM 4.5 mmol/L (3.5-5.1); TOTAL BILIRUBIN 0.8 mg/dL (0.0-1.0)
[2020-04-10 06:46] LABS: BASOPHILS % (AUTO) 0.4 % (0.0-2.0); EOSINOPHILS # (AUTO) 0.2 K/uL (0.0-0.4); EOSINOPHILS % (AUTO) 1.8 % (0.0-4.0); HEMATOCRIT 32.3 % (36-54); HEMOGLOBIN 10.6 g/dL (14.0-18.0); LYMPHOCYTES # (AUTO) 0.9 K/uL (1.0-5.5); LYMPHOCYTES % (AUTO) 9.4 % (20.5-51.5); MEAN CORPUSCULAR HEMOGLOBIN 28 pg (27-31); MEAN CORPUSCULAR HGB CONC 33 % (32-36); MEAN CORPUSCULAR VOLUME 87 fL (79.0-98.0); MONOCYTES # (AUTO) 0.7 K/uL (0.0-1.0); MONOCYTES % (AUTO) 6.9 % (1.7-9.3); NEUTROPHILS # (AUTO) 8.1 K/uL (1.8-7.7); NEUTROPHILS % (AUTO) 81.5 % (40.0-70.0); PLATELET COUNT (AUTO) 257 K/uL (130-430); RED BLOOD CELL COUNT(AUTO) 3.72 MIL/uL (4.2-6.2); RED CELL DISTRIBUTION WIDTH 13.9 % (9.0-15.0)
[2020-04-10] MEDS: SODIUM BICARBONATE 650 MG TABLET NG SCH ×2 (08:00→21:00)
[2020-04-10] MEDS: NACL 0.9% 1,000 ML IV SCH ×2 (08:01→22:10)
[2020-04-10] MEDS: MIDAZOLAM IN NACL,ISO-OSMOT/PF 100 ML IV PRN (08:04)
[2020-04-10] MEDS: PEG 400/HYPROMELLOSE/GLYCERIN 15 ML DROPS OP SCH ×2 (08:06→21:00)
[2020-04-10] MEDS: DOCUSATE SODIUM 100 MG/10 ML UDC PO SCH (08:06)
[2020-04-10] MEDS ORDERED: DOCUSATE SODIUM 100 MG/10 ML UDC ONE (08:07)
[2020-04-10] MEDS ORDERED: SODIUM BICARBONATE 8.4% JECT 50 MEQ/50 ML SYRINGE IVP ONE (08:45)
[2020-04-10] MEDS ORDERED: SODIUM BICARBONATE 8.4% JECT 50 MEQ/50 ML SYRINGE ONE (08:46)
[2020-04-10] MEDS ORDERED: DEXAMETHASONE SOD PHOSPHATE 4 MG/ML VIAL IVP SCH (09:00)
[2020-04-10] MEDS: methylPREDNISolone SOD SUCC 40 MG/ML VIAL IVP SCH ×2 (14:26→21:48)
[2020-04-10] MEDS: ALBUTEROL MDI INHALATION 8 GM INH INH SCH ×3 (16:18→19:20)
[2020-04-10] MEDS: MORPHINE I.V. DRIP 100 ML IV PRN (22:11)
[2020-04-11] VITALS (29 sets, daily range): BP systolic 132–166
[2020-04-11] MEDS: METOCLOPRAMIDE HCL 10 MG/2 ML VIAL IVP SCH ×5 (00:28→23:06)
[2020-04-11] MEDS: PROPOFOL DRIP 100 ML IV PRN ×3 (00:53→12:30)
[2020-04-11] MEDS: methylPREDNISolone SOD SUCC 40 MG/ML VIAL IVP SCH ×3 (06:31→22:00)
[2020-04-11] MEDS: HEPARIN SODIUM,PORCINE 5,000 UNITS/ML VIAL SUBCUT SCH ×3 (06:32→22:00)
[2020-04-11 08:08] LABS: BASOPHILS % (AUTO) 0.1 % (0.0-2.0); EOSINOPHILS % (AUTO) 0.2 % (0.0-4.0); HEMATOCRIT 29.5 % (36-54); LYMPHOCYTES # (AUTO) 0.5 K/uL (1.0-5.5); LYMPHOCYTES % (AUTO) 7.2 % (20.5-51.5); MEAN CORPUSCULAR HEMOGLOBIN 29 pg (27-31); MEAN CORPUSCULAR HGB CONC 34 % (32-36); MEAN CORPUSCULAR VOLUME 86 fL (79.0-98.0); MONOCYTES # (AUTO) 0.3 K/uL (0.0-1.0); MONOCYTES % (AUTO) 3.8 % (1.7-9.3); NEUTROPHILS # (AUTO) 6.6 K/uL (1.8-7.7); NEUTROPHILS % (AUTO) 88.7 % (40.0-70.0); PLATELET COUNT (AUTO) 231 K/uL (130-430); RED BLOOD CELL COUNT(AUTO) 3.45 MIL/uL (4.2-6.2); RED CELL DISTRIBUTION WIDTH 13.7 % (9.0-15.0); WHITE BLOOD COUNT (AUTO) 7.4 K/uL (4.8-10.8)
[2020-04-11] MEDS: ALBUTEROL MDI INHALATION 8 GM INH INH SCH ×4 (08:17→19:43)
[2020-04-11] MEDS ORDERED: DOCUSATE SODIUM 100 MG/10 ML UDC ONE (08:20)
[2020-04-11] MEDS: DOCUSATE SODIUM 100 MG/10 ML UDC PO SCH (08:20)
[2020-04-11] MEDS: PEG 400/HYPROMELLOSE/GLYCERIN 15 ML DROPS OP SCH ×2 (08:20→21:00)
[2020-04-11] MEDS: SODIUM BICARBONATE 650 MG TABLET NG SCH ×2 (08:20→21:00)
[2020-04-11 08:32] LABS: CALCIUM 9.1 mg/dL (8.4-11.0); CREATININE 6.36 mg/dL (0.55-1.30); POTASSIUM 4.5 mmol/L (3.5-5.1)
[2020-04-11] MEDS: MIDAZOLAM IN NACL,ISO-OSMOT/PF 100 ML IV PRN (11:51)
[2020-04-11] MEDS ORDERED: HEPARIN SODIUM,PORCINE 5,000 UNITS/ML VIAL ONE (12:57)
[2020-04-11] MEDS: NACL 0.9% 1,000 ML IV SCH (13:15)
[2020-04-12] VITALS (30 sets, daily range): BP systolic 148–217
[2020-04-12] MEDS: NACL 0.9% 1,000 ML IV SCH ×2 (05:00→14:57)
[2020-04-12] MEDS: METOCLOPRAMIDE HCL 10 MG/2 ML VIAL IVP SCH ×3 (06:00→17:02)
[2020-04-12] MEDS: HEPARIN SODIUM,PORCINE 5,000 UNITS/ML VIAL SUBCUT SCH ×3 (06:00→21:45)
[2020-04-12] MEDS: methylPREDNISolone SOD SUCC 40 MG/ML VIAL IVP SCH ×3 (06:00→21:44)
[2020-04-12] MEDS: ALBUTEROL MDI INHALATION 8 GM INH INH SCH ×4 (08:19→20:23)
[2020-04-12 08:47] LABS: BASOPHILS % (AUTO) 0.3 % (0.0-2.0); EOSINOPHILS % (AUTO) 0.4 % (0.0-4.0); HEMATOCRIT 25.9 % (36-54); HEMOGLOBIN 9.1 g/dL (14.0-18.0); LYMPHOCYTES # (AUTO) 0.6 K/uL (1.0-5.5); LYMPHOCYTES % (AUTO) 6.9 % (20.5-51.5); MEAN CORPUSCULAR HEMOGLOBIN 30 pg (27-31); MEAN CORPUSCULAR HGB CONC 35 % (32-36); MEAN CORPUSCULAR VOLUME 86 fL (79.0-98.0); MONOCYTES # (AUTO) 0.6 K/uL (0.0-1.0); MONOCYTES % (AUTO) 6.6 % (1.7-9.3); NEUTROPHILS # (AUTO) 7.8 K/uL (1.8-7.7); NEUTROPHILS % (AUTO) 85.8 % (40.0-70.0); PLATELET COUNT (AUTO) 240 K/uL (130-430); RED BLOOD CELL COUNT(AUTO) 3.02 MIL/uL (4.2-6.2); RED CELL DISTRIBUTION WIDTH 13.6 % (9.0-15.0); WHITE BLOOD COUNT (AUTO) 9.1 K/uL (4.8-10.8)
[2020-04-12] MEDS: PEG 400/HYPROMELLOSE/GLYCERIN 15 ML DROPS OP SCH ×2 (09:12→21:31)
[2020-04-12] MEDS: SODIUM BICARBONATE 650 MG TABLET NG SCH ×2 (09:13→21:31)
[2020-04-12] MEDS: DOCUSATE SODIUM 100 MG/10 ML UDC PO SCH (09:15)
[2020-04-12] MEDS ORDERED: DOCUSATE SODIUM 100 MG/10 ML UDC ONE (09:16)
[2020-04-12 09:39] LABS: CALCIUM 7.6 mg/dL (8.4-11.0); CREATININE 4.38 mg/dL (0.55-1.30); POTASSIUM 3.3 mmol/L (3.5-5.1)
[2020-04-12 09:45] LABS: TOTAL BILIRUBIN 0.7 mg/dL (0.0-1.0)
[2020-04-12] MEDS: PROPOFOL DRIP 100 ML IV PRN ×2 (12:02→16:50)
[2020-04-12] MEDS ORDERED: MORPHINE I.V. DRIP 100 ML IV PRN (12:45)
[2020-04-12] MEDS: LABETALOL 100 MG/ 20ML VIAL IVP PRN ×3 (13:14→23:15)
[2020-04-12] MEDS: hydrALAZINE HCL 20 MG/ML VIAL IVP PRN (16:51)
[2020-04-12] MEDS ORDERED: MORPHINE 2 MG/ML INJ. SYRINGE ONE (17:05)
[2020-04-12] MEDS: MORPHINE 2 MG/ML INJ. SYRINGE IVP PRN (17:30)
[2020-04-13] VITALS (32 sets, daily range): BP systolic 135–208
[2020-04-13] MEDS: METOCLOPRAMIDE HCL 10 MG/2 ML VIAL IVP SCH ×4 (00:34→17:32)
[2020-04-13] MEDS: HEPARIN SODIUM,PORCINE 5,000 UNITS/ML VIAL SUBCUT SCH ×3 (05:30→22:00)
[2020-04-13] MEDS: methylPREDNISolone SOD SUCC 40 MG/ML VIAL IVP SCH ×3 (05:30→22:06)
[2020-04-13] MEDS: ALBUTEROL MDI INHALATION 8 GM INH INH SCH ×4 (07:30→20:10)
[2020-04-13] MEDS ORDERED: DOCUSATE SODIUM 100 MG/10 ML UDC ONE (08:29)
[2020-04-13] MEDS: NACL 0.9% 1,000 ML IV SCH ×2 (08:30→18:03)
[2020-04-13] MEDS: DOCUSATE SODIUM 100 MG/10 ML UDC PO SCH (08:30)
[2020-04-13] MEDS: SODIUM BICARBONATE 650 MG TABLET NG SCH ×2 (08:30→22:06)
[2020-04-13] MEDS: PEG 400/HYPROMELLOSE/GLYCERIN 15 ML DROPS OP SCH ×2 (09:00→22:06)
[2020-04-13] MEDS ORDERED: KCL 40 mEq in 100 mL (PREMIX) 100 ML IV PRN (09:15)
[2020-04-13 09:32] LABS: BASOPHILS % (AUTO) 0.3 % (0.0-2.0); EOSINOPHILS % (AUTO) 0.1 % (0.0-4.0); HEMATOCRIT 31.3 % (36-54); HEMOGLOBIN 10.8 g/dL (14.0-18.0); LYMPHOCYTES # (AUTO) 0.3 K/uL (1.0-5.5); LYMPHOCYTES % (AUTO) 2.3 % (20.5-51.5); MEAN CORPUSCULAR HEMOGLOBIN 30 pg (27-31); MEAN CORPUSCULAR HGB CONC 35 % (32-36); MEAN CORPUSCULAR VOLUME 86 fL (79.0-98.0); MONOCYTES # (AUTO) 0.8 K/uL (0.0-1.0); MONOCYTES % (AUTO) 4.9 % (1.7-9.3); NEUTROPHILS # (AUTO) 14.1 K/uL (1.8-7.7); NEUTROPHILS % (AUTO) 92.4 % (40.0-70.0); PLATELET COUNT (AUTO) 285 K/uL (130-430); RED BLOOD CELL COUNT(AUTO) 3.65 MIL/uL (4.2-6.2); WHITE BLOOD COUNT (AUTO) 15.2 K/uL (4.8-10.8)
[2020-04-13 09:49] LABS: ALBUMIN 2.5 g/dL (3.4-4.8); CALCIUM 9.2 mg/dL (8.4-11.0); CREATININE 4.48 mg/dL (0.55-1.30); POTASSIUM 4.3 mmol/L (3.5-5.1); TOTAL BILIRUBIN 0.7 mg/dL (0.0-1.0)
[2020-04-13] MEDS: hydrALAZINE HCL 20 MG/ML VIAL IVP PRN ×2 (11:23→21:27)
[2020-04-13] MEDS: PROPOFOL DRIP 100 ML IV PRN ×2 (11:42→18:18)
[2020-04-13] MEDS: MORPHINE 2 MG/ML INJ. SYRINGE IVP PRN ×2 (13:39→17:21)
[2020-04-13] MEDS: LABETALOL 100 MG/ 20ML VIAL IVP PRN ×3 (13:41→22:56)
[2020-04-14] VITALS (28 sets, daily range): BP systolic 97–176
[2020-04-14] MEDS: MORPHINE I.V. DRIP 100 ML IV PRN (01:30)
[2020-04-14] MEDS: HEPARIN SODIUM,PORCINE 5,000 UNITS/ML VIAL SUBCUT SCH (06:00)
[2020-04-14 06:37] LABS: BASOPHILS % (AUTO) 0.1 % (0.0-2.0); EOSINOPHILS % (AUTO) 0.2 % (0.0-4.0); HEMATOCRIT 30.2 % (36-54); LYMPHOCYTES # (AUTO) 0.7 K/uL (1.0-5.5); LYMPHOCYTES % (AUTO) 5.3 % (20.5-51.5); MEAN CORPUSCULAR HEMOGLOBIN 29 pg (27-31); MEAN CORPUSCULAR HGB CONC 33 % (32-36); MEAN CORPUSCULAR VOLUME 87 fL (79.0-98.0); MONOCYTES # (AUTO) 0.7 K/uL (0.0-1.0); MONOCYTES % (AUTO) 5.6 % (1.7-9.3); NEUTROPHILS # (AUTO) 11.9 K/uL (1.8-7.7); NEUTROPHILS % (AUTO) 88.8 % (40.0-70.0); PLATELET COUNT (AUTO) 295 K/uL (130-430); RED BLOOD CELL COUNT(AUTO) 3.49 MIL/uL (4.2-6.2); RED CELL DISTRIBUTION WIDTH 14.1 % (9.0-15.0); WHITE BLOOD COUNT (AUTO) 13.3 K/uL (4.8-10.8)
[2020-04-14] MEDS: METOCLOPRAMIDE HCL 10 MG/2 ML VIAL IVP SCH ×5 (07:04→23:52)
[2020-04-14] MEDS: methylPREDNISolone SOD SUCC 40 MG/ML VIAL IVP SCH ×3 (07:04→22:00)
[2020-04-14 07:05] LABS: CALCIUM 9.3 mg/dL (8.4-11.0); CREATININE 4.27 mg/dL (0.55-1.30); PHOSPHORUS 6.9 mg/dL (2.7-4.5); POTASSIUM 4.7 mmol/L (3.5-5.1)
[2020-04-14] MEDS: NACL 0.9% 1,000 ML IV SCH ×2 (07:06→12:45)
[2020-04-14] MEDS: ALBUTEROL MDI INHALATION 8 GM INH INH SCH ×4 (08:00→20:22)
[2020-04-14 08:18] LABS: ERYTHROCYTE SEDIMENTATION RATE 110 MM/HR (0-15)
[2020-04-14] MEDS ORDERED: DOCUSATE SODIUM 100 MG/10 ML UDC ONE (08:32)
[2020-04-14] MEDS: SODIUM BICARBONATE 650 MG TABLET NG SCH ×2 (08:55→21:00)
[2020-04-14] MEDS: PEG 400/HYPROMELLOSE/GLYCERIN 15 ML DROPS OP SCH ×2 (08:55→21:00)
[2020-04-14] MEDS: PROPOFOL DRIP 100 ML IV PRN ×5 (08:56→23:51)
[2020-04-14] MEDS: DOCUSATE SODIUM 100 MG/10 ML UDC PO SCH (08:56)
[2020-04-14] MEDS: LABETALOL 100 MG/ 20ML VIAL IVP PRN (09:00)
[2020-04-14 09:03] LABS: C-REACTIVE PROTEIN QUANT 10.9 mg/dL (0-0.5)
[2020-04-14] MEDS: MORPHINE 2 MG/ML INJ. SYRINGE IVP PRN ×3 (09:28→15:49)
[2020-04-14 11:51] LABS: PROTHROMBIN TIME 10.3 SECS (9.5-12.5)
[2020-04-14] MEDS: hydrALAZINE HCL 20 MG/ML VIAL IVP PRN (12:25)
[2020-04-14] MEDS: MIDAZOLAM IN NACL,ISO-OSMOT/PF 100 ML IV PRN (12:43)
[2020-04-14] MEDS ORDERED: PROPOFOL DRIP 100 ML IV ONE (14:53)
[2020-04-14] MEDS ORDERED: MORPHINE I.V. DRIP 100 ML IV ONE (15:35)
[2020-04-14] MEDS ORDERED: HEPARIN SODIUM, PORCINE 10,000 UNITS/ 10 ML VIAL MC ONE ×2 (16:00)
[2020-04-14] MEDS ORDERED: HEPARIN SODIUM,PORCINE 5,000 UNITS/ML VIAL IV ONE (16:00)
[2020-04-14] MEDS ORDERED: HEPARIN SODIUM,PORCINE 5,000 UNITS/ML VIAL ONE (16:10)
[2020-04-14] MEDS: VECURONIUM BROMIDE 50 MG in NS 50 ML IV PRN (17:40)
[2020-04-15] VITALS (30 sets, daily range): BP systolic 121–149
[2020-04-15] MEDS: MIDAZOLAM IN NACL,ISO-OSMOT/PF 100 ML IV PRN ×3 (00:32→22:34)
[2020-04-15] MEDS: NACL 0.9% 1,000 ML IV SCH ×2 (03:22→16:55)
[2020-04-15] MEDS: methylPREDNISolone SOD SUCC 40 MG/ML VIAL IVP SCH ×3 (05:39→22:13)
[2020-04-15] MEDS: METOCLOPRAMIDE HCL 10 MG/2 ML VIAL IVP SCH ×3 (05:39→17:59)
[2020-04-15] MEDS: VECURONIUM BROMIDE 50 MG in NS 50 ML IV PRN ×2 (05:48→18:06)
[2020-04-15 05:54] LABS: BASOPHILS % (AUTO) 0.1 % (0.0-2.0); EOSINOPHILS # (AUTO) 0.1 K/uL (0.0-0.4); EOSINOPHILS % (AUTO) 0.7 % (0.0-4.0); HEMATOCRIT 27.6 % (36-54); HEMOGLOBIN 9.1 g/dL (14.0-18.0); LYMPHOCYTES # (AUTO) 0.5 K/uL (1.0-5.5); MEAN CORPUSCULAR HEMOGLOBIN 29 pg (27-31); MEAN CORPUSCULAR HGB CONC 33 % (32-36); MEAN CORPUSCULAR VOLUME 87 fL (79.0-98.0); MONOCYTES # (AUTO) 0.4 K/uL (0.0-1.0); MONOCYTES % (AUTO) 4.3 % (1.7-9.3); NEUTROPHILS # (AUTO) 9.4 K/uL (1.8-7.7); NEUTROPHILS % (AUTO) 89.9 % (40.0-70.0); PLATELET COUNT (AUTO) 216 K/uL (130-430); RED BLOOD CELL COUNT(AUTO) 3.19 MIL/uL (4.2-6.2); RED CELL DISTRIBUTION WIDTH 14.3 % (9.0-15.0); WHITE BLOOD COUNT (AUTO) 10.4 K/uL (4.8-10.8)
[2020-04-15 06:16] LABS: ALBUMIN 2.2 g/dL (3.4-4.8); CALCIUM 8.6 mg/dL (8.4-11.0); CREATININE 3.07 mg/dL (0.55-1.30); PHOSPHORUS 6.2 mg/dL (2.7-4.5); POTASSIUM 4.3 mmol/L (3.5-5.1); TOTAL BILIRUBIN 0.5 mg/dL (0.0-1.0)
[2020-04-15 07:08] LABS: ERYTHROCYTE SEDIMENTATION RATE 116 MM/HR (0-15)
[2020-04-15] MEDS: ALBUTEROL MDI INHALATION 8 GM INH INH SCH ×2 (08:05→19:00)
[2020-04-15] MEDS ORDERED: DOCUSATE SODIUM 100 MG/10 ML UDC ONE (08:18)
[2020-04-15] MEDS: SODIUM BICARBONATE 650 MG TABLET NG SCH ×2 (08:40→22:13)
[2020-04-15] MEDS: PEG 400/HYPROMELLOSE/GLYCERIN 15 ML DROPS OP SCH ×2 (08:41→22:13)
[2020-04-15] MEDS: DOCUSATE SODIUM 100 MG/10 ML UDC PO SCH (08:41)
[2020-04-15] MEDS: PROPOFOL DRIP 100 ML IV PRN ×4 (10:51→22:33)
[2020-04-15] MEDS: MORPHINE I.V. DRIP 100 ML IV PRN ×2 (12:29→22:37)
[2020-04-15] MEDS ORDERED: HEPARIN SODIUM,PORCINE 5,000 UNITS/ML VIAL ONE (22:20)
[2020-04-15] MEDS: HEPARIN SODIUM,PORCINE 5,000 UNITS/ML VIAL SUBCUT SCH (22:29)
[2020-04-16] VITALS (32 sets, daily range): BP systolic 121–164
[2020-04-16] MEDS: METOCLOPRAMIDE HCL 10 MG/2 ML VIAL IVP SCH ×5 (00:24→23:04)
[2020-04-16] MEDS: PROPOFOL DRIP 100 ML IV PRN ×6 (02:00→21:00)
[2020-04-16] MEDS ORDERED: HEPARIN SODIUM,PORCINE 5,000 UNITS/ML VIAL ONE ×2 (05:19→14:33)
[2020-04-16] MEDS: NACL 0.9% 1,000 ML IV SCH (06:00)
[2020-04-16] MEDS: methylPREDNISolone SOD SUCC 40 MG/ML VIAL IVP SCH ×3 (06:02→21:52)
[2020-04-16] MEDS: HEPARIN SODIUM,PORCINE 5,000 UNITS/ML VIAL SUBCUT SCH ×3 (06:03→21:53)
[2020-04-16 06:29] LABS: CALCIUM 8.8 mg/dL (8.4-11.0); CREATININE 2.52 mg/dL (0.55-1.30); POTASSIUM 4.1 mmol/L (3.5-5.1)
[2020-04-16 06:35] LABS: ALBUMIN 2.1 g/dL (3.4-4.8); TOTAL BILIRUBIN 0.5 mg/dL (0.0-1.0)
[2020-04-16 06:43] LABS: BASOPHILS % (AUTO) 0.6 % (0.0-2.0); EOSINOPHILS # (AUTO) 0.2 K/uL (0.0-0.4); EOSINOPHILS % (AUTO) 1.9 % (0.0-4.0); HEMATOCRIT 26.1 % (36-54); LYMPHOCYTES # (AUTO) 0.5 K/uL (1.0-5.5); LYMPHOCYTES % (AUTO) 6.3 % (20.5-51.5); MEAN CORPUSCULAR HEMOGLOBIN 30 pg (27-31); MEAN CORPUSCULAR HGB CONC 35 % (32-36); MEAN CORPUSCULAR VOLUME 87 fL (79.0-98.0); MONOCYTES # (AUTO) 0.3 K/uL (0.0-1.0); MONOCYTES % (AUTO) 3.7 % (1.7-9.3); NEUTROPHILS # (AUTO) 6.9 K/uL (1.8-7.7); NEUTROPHILS % (AUTO) 87.5 % (40.0-70.0); PLATELET COUNT (AUTO) 275 K/uL (130-430); RED BLOOD CELL COUNT(AUTO) 3.01 MIL/uL (4.2-6.2); RED CELL DISTRIBUTION WIDTH 14.2 % (9.0-15.0); WHITE BLOOD COUNT (AUTO) 7.8 K/uL (4.8-10.8)
[2020-04-16 07:36] LABS: C-REACTIVE PROTEIN QUANT 5.4 mg/dL (0-0.5)
[2020-04-16] MEDS ORDERED: DOPamine PREMIX 250 ML IV PRN (08:15)
[2020-04-16] MEDS ORDERED: BISACODYL 10 MG/SUPPOSITORY RC PRN (08:15)
[2020-04-16] MEDS: ALBUTEROL MDI INHALATION 8 GM INH INH SCH ×3 (08:20→20:28)
[2020-04-16] MEDS: DOCUSATE SODIUM 100 MG/10 ML UDC PO SCH (08:29)
[2020-04-16] MEDS: SODIUM BICARBONATE 650 MG TABLET NG SCH ×2 (08:29→21:52)
[2020-04-16] MEDS ORDERED: DOCUSATE SODIUM 100 MG/10 ML UDC ONE (08:29)
[2020-04-16] MEDS: MIDAZOLAM IN NACL,ISO-OSMOT/PF 100 ML IV PRN ×2 (08:30→21:00)
[2020-04-16] MEDS: MORPHINE I.V. DRIP 100 ML IV PRN ×2 (08:31→21:00)
[2020-04-16] MEDS: PEG 400/HYPROMELLOSE/GLYCERIN 15 ML DROPS OP SCH ×2 (09:16→21:52)
[2020-04-16] MEDS: POLYETHYLENE GLYCOL 3350, 17 GM/ POWD.PACK NG SCH ×2 (12:41→21:52)
[2020-04-16] MEDS: SENNA 8.8 MG/5 ML UDC GT SCH (21:52)
[2020-04-17] VITALS (29 sets, daily range): BP systolic 115–158
[2020-04-17] MEDS: HEPARIN SODIUM,PORCINE 5,000 UNITS/ML VIAL SUBCUT SCH ×3 (06:00→21:38)
[2020-04-17] MEDS: METOCLOPRAMIDE HCL 10 MG/2 ML VIAL IVP SCH ×4 (06:43→23:51)
[2020-04-17] MEDS: methylPREDNISolone SOD SUCC 40 MG/ML VIAL IVP SCH ×3 (06:44→21:38)
[2020-04-17] MEDS: PROPOFOL DRIP 100 ML IV PRN ×2 (06:47)
[2020-04-17] MEDS: MORPHINE I.V. DRIP 100 ML IV PRN ×2 (06:48→18:21)
[2020-04-17] MEDS: POLYETHYLENE GLYCOL 3350, 17 GM/ POWD.PACK NG SCH ×2 (07:27→21:37)
[2020-04-17] MEDS: DOCUSATE SODIUM 100 MG/10 ML UDC PO SCH (07:28)
[2020-04-17] MEDS: ALBUTEROL MDI INHALATION 8 GM INH INH SCH ×3 (07:35→15:25)
[2020-04-17] MEDS: MIDAZOLAM IN NACL,ISO-OSMOT/PF 100 ML IV PRN ×2 (07:42→18:55)
[2020-04-17] MEDS: SODIUM BICARBONATE 650 MG TABLET NG SCH ×2 (08:46→21:38)
[2020-04-17] MEDS: PEG 400/HYPROMELLOSE/GLYCERIN 15 ML DROPS OP SCH ×2 (08:46→21:38)
[2020-04-17] MEDS: ACETAMINOPHEN 650 MG/20.3 ML UDC GT PRN (14:12)
[2020-04-17 15:44] LABS: BASOPHILS # (AUTO) 0.1 K/uL (0.0-0.2); BASOPHILS % (AUTO) 0.4 % (0.0-2.0); EOSINOPHILS # (AUTO) 0.1 K/uL (0.0-0.4); EOSINOPHILS % (AUTO) 0.4 % (0.0-4.0); HEMATOCRIT 30.8 % (36-54); LYMPHOCYTES # (AUTO) 1.8 K/uL (1.0-5.5); LYMPHOCYTES % (AUTO) 12.5 % (20.5-51.5); MEAN CORPUSCULAR HEMOGLOBIN 28 pg (27-31); MEAN CORPUSCULAR HGB CONC 32 % (32-36); MEAN CORPUSCULAR VOLUME 88 fL (79.0-98.0); MONOCYTES # (AUTO) 0.9 K/uL (0.0-1.0); MONOCYTES % (AUTO) 6.1 % (1.7-9.3); NEUTROPHILS # (AUTO) 11.3 K/uL (1.8-7.7); NEUTROPHILS % (AUTO) 80.6 % (40.0-70.0); PLATELET COUNT (AUTO) 281 K/uL (130-430); RED BLOOD CELL COUNT(AUTO) 3.51 MIL/uL (4.2-6.2); RED CELL DISTRIBUTION WIDTH 14.5 % (9.0-15.0)
[2020-04-17 16:10] LABS: CALCIUM 8.6 mg/dL (8.4-11.0); CREATININE 2.59 mg/dL (0.55-1.30); POTASSIUM 4.9 mmol/L (3.5-5.1)
[2020-04-17 16:16] LABS: ALBUMIN 2.5 g/dL (3.4-4.8); TOTAL BILIRUBIN 0.6 mg/dL (0.0-1.0)
[2020-04-17] MEDS ORDERED: SODIUM BICARBONATE 8.4% JECT 50 MEQ/50 ML SYRINGE ONE (16:50)
[2020-04-17] MEDS ORDERED: SODIUM BICARBONATE 8.4% JECT 150 MEQ in D5W 1,000 ML IVP SCH (17:00)
[2020-04-17] MEDS: VANCOMYCIN HCL 1,500 MG in NS 250 ML IV SCH (17:44)
[2020-04-17] MEDS: VECURONIUM BROMIDE 50 MG in NS 50 ML IV PRN (17:46)
[2020-04-17] MEDS ORDERED: HEPARIN SODIUM,PORCINE 5,000 UNITS/ML VIAL ONE (20:35)
[2020-04-17] MEDS: SENNA 8.8 MG/5 ML UDC GT SCH (21:37)
[2020-04-18] VITALS (30 sets, daily range): BP systolic 124–187
[2020-04-18] MEDS ORDERED: HEPARIN SODIUM,PORCINE 5,000 UNITS/ML VIAL ONE ×3 (05:11→21:45)
[2020-04-18] MEDS: methylPREDNISolone SOD SUCC 40 MG/ML VIAL IVP SCH ×3 (05:13→22:03)
[2020-04-18] MEDS: HEPARIN SODIUM,PORCINE 5,000 UNITS/ML VIAL SUBCUT SCH ×3 (05:13→22:18)
[2020-04-18] MEDS: METOCLOPRAMIDE HCL 10 MG/2 ML VIAL IVP SCH ×4 (05:13→23:56)
[2020-04-18 06:18] LABS: BASOPHILS % (AUTO) 0.1 % (0.0-2.0); EOSINOPHILS % (AUTO) 0.1 % (0.0-4.0); HEMATOCRIT 27.9 % (36-54); HEMOGLOBIN 9.2 g/dL (14.0-18.0); LYMPHOCYTES # (AUTO) 1.1 K/uL (1.0-5.5); LYMPHOCYTES % (AUTO) 8.3 % (20.5-51.5); MEAN CORPUSCULAR HEMOGLOBIN 29 pg (27-31); MEAN CORPUSCULAR HGB CONC 33 % (32-36); MEAN CORPUSCULAR VOLUME 88 fL (79.0-98.0); MONOCYTES # (AUTO) 0.6 K/uL (0.0-1.0); MONOCYTES % (AUTO) 4.3 % (1.7-9.3); NEUTROPHILS # (AUTO) 11.4 K/uL (1.8-7.7); NEUTROPHILS % (AUTO) 87.2 % (40.0-70.0); PLATELET COUNT (AUTO) 190 K/uL (130-430); RED BLOOD CELL COUNT(AUTO) 3.18 MIL/uL (4.2-6.2); RED CELL DISTRIBUTION WIDTH 14.5 % (9.0-15.0)
[2020-04-18] MEDS: ALBUTEROL MDI INHALATION 8 GM INH INH SCH ×4 (07:25→20:12)
[2020-04-18 07:32] LABS: ALBUMIN 2.3 g/dL (3.4-4.8); CALCIUM 9.2 mg/dL (8.4-11.0); CREATININE 2.43 mg/dL (0.55-1.30); POTASSIUM 4.4 mmol/L (3.5-5.1); TOTAL BILIRUBIN 0.7 mg/dL (0.0-1.0)
[2020-04-18] MEDS: PROPOFOL DRIP 100 ML IV PRN ×2 (08:49→12:20)
[2020-04-18] MEDS: MORPHINE I.V. DRIP 100 ML IV PRN (08:50)
[2020-04-18] MEDS: SODIUM BICARBONATE 650 MG TABLET NG SCH ×2 (10:16→22:03)
[2020-04-18] MEDS: POLYETHYLENE GLYCOL 3350, 17 GM/ POWD.PACK NG SCH ×2 (10:20→22:03)
[2020-04-18] MEDS ORDERED: DOCUSATE SODIUM 100 MG/10 ML UDC ONE (10:27)
[2020-04-18] MEDS: DOCUSATE SODIUM 100 MG/10 ML UDC PO SCH (10:27)
[2020-04-18] MEDS: PEG 400/HYPROMELLOSE/GLYCERIN 15 ML DROPS OP SCH ×2 (10:57→22:03)
[2020-04-18] MEDS ORDERED: HEPARIN SODIUM, PORCINE 10,000 UNITS/ 10 ML VIAL MC ONE (14:00)
[2020-04-18] MEDS: CEFEPIME 1 GM in D5W 50 ML IV SCH ×2 (17:36→17:37)
[2020-04-18] MEDS: VANCOMYCIN HCL 1,500 MG in NS 250 ML IV SCH (18:37)
[2020-04-18] MEDS ORDERED: ATROPINE SULFATE 1 MG/10 ML SYRINGE IVP ONE (19:15)
[2020-04-18] MEDS: SENNA 8.8 MG/5 ML UDC GT SCH (22:03)
[2020-04-18] MEDS: hydrALAZINE HCL 20 MG/ML VIAL IVP PRN (22:20)
[2020-04-19] VITALS (30 sets, daily range): BP systolic 139–188
[2020-04-19] MEDS: HEPARIN SODIUM,PORCINE 5,000 UNITS/ML VIAL SUBCUT SCH ×3 (06:00→22:03)
[2020-04-19] MEDS: METOCLOPRAMIDE HCL 10 MG/2 ML VIAL IVP SCH ×4 (06:40→23:46)
[2020-04-19] MEDS: methylPREDNISolone SOD SUCC 40 MG/ML VIAL IVP SCH ×3 (06:40→22:02)
[2020-04-19] MEDS: ALBUTEROL MDI INHALATION 8 GM INH INH SCH ×4 (07:00→20:29)
[2020-04-19 08:22] LABS: BASOPHILS % (AUTO) 0.3 % (0.0-2.0); EOSINOPHILS # (AUTO) 0.1 K/uL (0.0-0.4); EOSINOPHILS % (AUTO) 0.4 % (0.0-4.0); HEMATOCRIT 31.5 % (36-54); HEMOGLOBIN 10.3 g/dL (14.0-18.0); LYMPHOCYTES # (AUTO) 0.6 K/uL (1.0-5.5); LYMPHOCYTES % (AUTO) 4.6 % (20.5-51.5); MEAN CORPUSCULAR HEMOGLOBIN 29 pg (27-31); MEAN CORPUSCULAR HGB CONC 33 % (32-36); MEAN CORPUSCULAR VOLUME 88 fL (79.0-98.0); MONOCYTES # (AUTO) 0.4 K/uL (0.0-1.0); MONOCYTES % (AUTO) 2.9 % (1.7-9.3); NEUTROPHILS # (AUTO) 11.2 K/uL (1.8-7.7); PLATELET COUNT (AUTO) 210 K/uL (130-430); RED BLOOD CELL COUNT(AUTO) 3.59 MIL/uL (4.2-6.2); RED CELL DISTRIBUTION WIDTH 14.6 % (9.0-15.0); WHITE BLOOD COUNT (AUTO) 12.2 K/uL (4.8-10.8)
[2020-04-19 08:41] LABS: CALCIUM 8.8 mg/dL (8.4-11.0); CREATININE 1.77 mg/dL (0.55-1.30); POTASSIUM 4.6 mmol/L (3.5-5.1)
[2020-04-19] MEDS: SODIUM BICARBONATE 650 MG TABLET NG SCH ×2 (09:00→09:12)
[2020-04-19] MEDS ORDERED: DOCUSATE SODIUM 100 MG/10 ML UDC ONE (09:01)
[2020-04-19] MEDS ORDERED: MIDAZOLAM IN NACL,ISO-OSMOT/PF 100 ML IV ONE (09:05)
[2020-04-19] MEDS: DOCUSATE SODIUM 100 MG/10 ML UDC PO SCH (09:11)
[2020-04-19] MEDS: POLYETHYLENE GLYCOL 3350, 17 GM/ POWD.PACK NG SCH ×2 (09:12→21:56)
[2020-04-19] MEDS: PEG 400/HYPROMELLOSE/GLYCERIN 15 ML DROPS OP SCH ×2 (09:13→21:56)
[2020-04-19] MEDS: PROPOFOL DRIP 100 ML IV PRN ×5 (09:15→22:06)
[2020-04-19] MEDS: MIDAZOLAM IN NACL,ISO-OSMOT/PF 100 ML IV PRN (09:17)
[2020-04-19] MEDS: VECURONIUM BROMIDE 50 MG in NS 50 ML IV PRN ×2 (09:17→15:45)
[2020-04-19 11:44] LABS: NEUTROPHILS % (AUTO) 91.8 % (40.0-70.0)
[2020-04-19] MEDS ORDERED: HEPARIN SODIUM,PORCINE 5,000 UNITS/ML VIAL ONE ×2 (12:44→22:03)
[2020-04-19] MEDS: hydrALAZINE HCL 20 MG/ML VIAL IVP PRN (15:55)
[2020-04-19] MEDS ORDERED: D5W 1,000 ML IV SCH (16:30)
[2020-04-19] MEDS ORDERED: 0.45% NACL 1,000 ML IV SCH (16:30)
[2020-04-19] MEDS: MORPHINE 2 MG/ML INJ. SYRINGE IVP PRN (16:45)
[2020-04-19] MEDS: CEFEPIME 1 GM in D5W 50 ML IV SCH (17:27)
[2020-04-19] MEDS: D5W 1,000 ML IV SCH (17:37)
[2020-04-19] MEDS: VANCOMYCIN HCL 1,500 MG in NS 250 ML IV SCH (17:38)
[2020-04-19] MEDS ORDERED: MENTHOL/ZINC OXIDE 113 GM OINT. TP PRN (21:00)
[2020-04-19] MEDS: SENNA 8.8 MG/5 ML UDC GT SCH (21:56)
[2020-04-20] VITALS (31 sets, daily range): BP systolic 119–192
[2020-04-20] MEDS ORDERED: MIDAZOLAM IN NACL,ISO-OSMOT/PF 100 ML IV ONE ×2 (01:32→15:56)
[2020-04-20] MEDS: PROPOFOL DRIP 100 ML IV PRN ×6 (01:50→19:10)
[2020-04-20] MEDS: MIDAZOLAM IN NACL,ISO-OSMOT/PF 100 ML IV PRN ×2 (01:52→17:30)
[2020-04-20] MEDS ORDERED: HEPARIN SODIUM,PORCINE 5,000 UNITS/ML VIAL ONE ×3 (05:41→21:36)
[2020-04-20] MEDS: HEPARIN SODIUM,PORCINE 5,000 UNITS/ML VIAL SUBCUT SCH ×3 (05:46→21:42)
[2020-04-20] MEDS: METOCLOPRAMIDE HCL 10 MG/2 ML VIAL IVP SCH ×3 (06:07→17:17)
[2020-04-20] MEDS: methylPREDNISolone SOD SUCC 40 MG/ML VIAL IVP SCH ×3 (06:07→21:36)
[2020-04-20 07:16] LABS: BASOPHILS % (AUTO) 0.4 % (0.0-2.0); EOSINOPHILS # (AUTO) 0.3 K/uL (0.0-0.4); EOSINOPHILS % (AUTO) 2.4 % (0.0-4.0); HEMATOCRIT 32.5 % (36-54); HEMOGLOBIN 10.3 g/dL (14.0-18.0); LYMPHOCYTES # (AUTO) 0.9 K/uL (1.0-5.5); LYMPHOCYTES % (AUTO) 7.6 % (20.5-51.5); MEAN CORPUSCULAR HEMOGLOBIN 28 pg (27-31); MEAN CORPUSCULAR HGB CONC 32 % (32-36); MEAN CORPUSCULAR VOLUME 90 fL (79.0-98.0); MONOCYTES # (AUTO) 0.4 K/uL (0.0-1.0); MONOCYTES % (AUTO) 3.3 % (1.7-9.3); NEUTROPHILS # (AUTO) 10.3 K/uL (1.8-7.7); NEUTROPHILS % (AUTO) 86.3 % (40.0-70.0); PLATELET COUNT (AUTO) 251 K/uL (130-430); RED BLOOD CELL COUNT(AUTO) 3.62 MIL/uL (4.2-6.2)
[2020-04-20 07:32] LABS: ALBUMIN 2.5 g/dL (3.4-4.8); CALCIUM 9.2 mg/dL (8.4-11.0); CREATININE 1.66 mg/dL (0.55-1.30); TOTAL BILIRUBIN 0.8 mg/dL (0.0-1.0)
[2020-04-20] MEDS: ALBUTEROL MDI INHALATION 8 GM INH INH SCH ×4 (07:44→20:25)
[2020-04-20] MEDS: DOCUSATE SODIUM 100 MG/10 ML UDC PO SCH (09:54)
[2020-04-20] MEDS: POLYETHYLENE GLYCOL 3350, 17 GM/ POWD.PACK NG SCH ×2 (09:54→21:26)
[2020-04-20] MEDS: PEG 400/HYPROMELLOSE/GLYCERIN 15 ML DROPS OP SCH ×2 (09:54→21:26)
[2020-04-20] MEDS ORDERED: DOCUSATE SODIUM 100 MG/10 ML UDC ONE (09:55)
[2020-04-20] MEDS: MORPHINE 2 MG/ML INJ. SYRINGE IVP PRN ×2 (09:56→15:59)
[2020-04-20] MEDS: hydrALAZINE HCL 20 MG/ML VIAL IVP PRN ×2 (09:59→16:00)
[2020-04-20] MEDS: VECURONIUM BROMIDE 50 MG in NS 50 ML IV PRN ×2 (10:00→15:58)
[2020-04-20] MEDS ORDERED: FUROSEMIDE 20 MG/2 ML VIAL IVP ONE (12:15)
[2020-04-20] MEDS ORDERED: BISACODYL 10 MG/SUPPOSITORY RC ONE (12:15)
[2020-04-20] MEDS ORDERED: FUROSEMIDE 20 MG/2 ML VIAL ONE (12:19)
[2020-04-20] MEDS: D5W 1,000 ML IV SCH (12:49)
[2020-04-20] MEDS: CEFEPIME 1 GM in D5W 50 ML IV SCH (17:17)
[2020-04-20] MEDS: SENNA 8.8 MG/5 ML UDC GT SCH (21:26)
[2020-04-21] VITALS (30 sets, daily range): BP systolic 115–171
[2020-04-21] MEDS: METOCLOPRAMIDE HCL 10 MG/2 ML VIAL IVP SCH ×4 (01:18→18:11)
[2020-04-21] MEDS: methylPREDNISolone SOD SUCC 40 MG/ML VIAL IVP SCH ×3 (06:42→21:00)
[2020-04-21] MEDS: HEPARIN SODIUM,PORCINE 5,000 UNITS/ML VIAL SUBCUT SCH ×3 (06:43→21:05)
[2020-04-21] MEDS: ALBUTEROL MDI INHALATION 8 GM INH INH SCH ×4 (07:25→19:56)
[2020-04-21] MEDS: PEG 400/HYPROMELLOSE/GLYCERIN 15 ML DROPS OP SCH ×2 (08:36→21:00)
[2020-04-21] MEDS: POLYETHYLENE GLYCOL 3350, 17 GM/ POWD.PACK NG SCH ×2 (08:36→21:00)
[2020-04-21] MEDS: DOCUSATE SODIUM 100 MG/10 ML UDC PO SCH (08:37)
[2020-04-21] MEDS: D5W 1,000 ML IV SCH (08:39)
[2020-04-21] MEDS: VECURONIUM BROMIDE 50 MG in NS 50 ML IV PRN (08:44)
[2020-04-21] MEDS: PROPOFOL DRIP 100 ML IV PRN ×4 (08:45→21:00)
[2020-04-21] MEDS ORDERED: FUROSEMIDE 20 MG/2 ML VIAL IVP ONE (09:15)
[2020-04-21 09:36] LABS: CALCIUM 8.9 mg/dL (8.4-11.0); CREATININE 1.68 mg/dL (0.55-1.30); POTASSIUM 4.1 mmol/L (3.5-5.1)
[2020-04-21] MEDS ORDERED: MIDAZOLAM IN NACL,ISO-OSMOT/PF 100 ML IV ONE (11:23)
[2020-04-21] MEDS: MIDAZOLAM IN NACL,ISO-OSMOT/PF 100 ML IV PRN (11:26)
[2020-04-21] MEDS ORDERED: METOCLOPRAMIDE HCL 10 MG/2 ML VIAL ONE (12:06)
[2020-04-21] MEDS ORDERED: HEPARIN SODIUM,PORCINE 5,000 UNITS/ML VIAL ONE ×2 (13:41→21:04)
[2020-04-21] MEDS: MORPHINE I.V. DRIP 100 ML IV PRN (15:53)
[2020-04-21] MEDS: CEFEPIME 1 GM in D5W 50 ML IV SCH (17:06)
[2020-04-21] MEDS: ACETAMINOPHEN 650 MG/20.3 ML UDC GT PRN (17:38)
[2020-04-21] MEDS ORDERED: ACETAMINOPHEN 650 MG/20.3 ML UDC GT PRN (17:45)
[2020-04-21] MEDS ORDERED: VANCOMYCIN HCL 1,250 MG in NS 250 ML IV SCH (18:00)
[2020-04-21] MEDS: SENNA 8.8 MG/5 ML UDC GT SCH (20:56)
[2020-04-21] MEDS: FUROSEMIDE 20 MG/2 ML VIAL IVP SCH (20:59)
[2020-04-21] MEDS ORDERED: FUROSEMIDE 20 MG/2 ML VIAL IVP SCH (21:00)
[2020-04-22] VITALS (32 sets, daily range): BP systolic 120–174
[2020-04-22] MEDS: PROPOFOL DRIP 100 ML IV PRN ×5 (00:31→20:00)
[2020-04-22] MEDS: METOCLOPRAMIDE HCL 10 MG/2 ML VIAL IVP SCH ×5 (00:34→23:46)
[2020-04-22] MEDS: MIDAZOLAM IN NACL,ISO-OSMOT/PF 100 ML IV PRN ×2 (02:15→17:08)
[2020-04-22] MEDS ORDERED: MIDAZOLAM IN NACL,ISO-OSMOT/PF 100 ML IV ONE ×2 (02:16→17:07)
[2020-04-22] MEDS: D5W 1,000 ML IV SCH (04:30)
[2020-04-22 06:03] LABS: BASOPHILS % (AUTO) 0.5 % (0.0-2.0); EOSINOPHILS # (AUTO) 0.3 K/uL (0.0-0.4); EOSINOPHILS % (AUTO) 3.9 % (0.0-4.0); HEMATOCRIT 27.1 % (36-54); HEMOGLOBIN 8.8 g/dL (14.0-18.0); LYMPHOCYTES # (AUTO) 0.8 K/uL (1.0-5.5); MEAN CORPUSCULAR HEMOGLOBIN 29 pg (27-31); MEAN CORPUSCULAR HGB CONC 32 % (32-36); MEAN CORPUSCULAR VOLUME 89 fL (79.0-98.0); MONOCYTES # (AUTO) 0.4 K/uL (0.0-1.0); MONOCYTES % (AUTO) 4.4 % (1.7-9.3); NEUTROPHILS # (AUTO) 7.3 K/uL (1.8-7.7); NEUTROPHILS % (AUTO) 82.2 % (40.0-70.0); PLATELET COUNT (AUTO) 214 K/uL (130-430); RED BLOOD CELL COUNT(AUTO) 3.04 MIL/uL (4.2-6.2); RED CELL DISTRIBUTION WIDTH 14.7 % (9.0-15.0); WHITE BLOOD COUNT (AUTO) 8.9 K/uL (4.8-10.8)
[2020-04-22] MEDS: methylPREDNISolone SOD SUCC 40 MG/ML VIAL IVP SCH ×3 (06:05→22:47)
[2020-04-22] MEDS: HEPARIN SODIUM,PORCINE 5,000 UNITS/ML VIAL SUBCUT SCH ×3 (06:05→22:48)
[2020-04-22] MEDS ORDERED: HEPARIN SODIUM,PORCINE 5,000 UNITS/ML VIAL ONE ×3 (06:06→22:19)
[2020-04-22 06:34] LABS: CALCIUM 8.9 mg/dL (8.4-11.0); CREATININE 1.46 mg/dL (0.55-1.30); POTASSIUM 3.3 mmol/L (3.5-5.1)
[2020-04-22] MEDS: ALBUTEROL MDI INHALATION 8 GM INH INH SCH ×3 (07:00→19:51)
[2020-04-22] MEDS: DOCUSATE SODIUM 100 MG/10 ML UDC PO SCH (09:00)
[2020-04-22] MEDS ORDERED: DOCUSATE SODIUM 100 MG/10 ML UDC ONE (10:31)
[2020-04-22] MEDS: POLYETHYLENE GLYCOL 3350, 17 GM/ POWD.PACK NG SCH ×2 (10:32→20:31)
[2020-04-22] MEDS: FUROSEMIDE 20 MG/2 ML VIAL IVP SCH ×2 (10:33→20:30)
[2020-04-22] MEDS: PEG 400/HYPROMELLOSE/GLYCERIN 15 ML DROPS OP SCH ×2 (10:33→20:31)
[2020-04-22 13:54] LABS: BILIRUBIN,URINE NEGATIVE (NEGATIVE); BLOOD, URINE 3+ (NEGATIVE); COLOR,URINE YELLOW (YELLOW); GLUCOSE,URINE NEGATIVE (NEGATIVE); KETONES,URINE NEGATIVE (NEGATIVE); LEUKOCYTE ESTERASE ,URINE 1+ (NEGATIVE); NITRITE, URINE NEGATIVE (NEGATIVE); PH,URINE 5.5 (5.0-8.0); PROTEIN URINE TRACE (NEGATIVE); UROBILINOGEN,URINE 0.2 (0.2-1.0)
[2020-04-22 13:56] LABS: CLARITY/URINE HAZY (CLEAR)
[2020-04-22 14:05] LABS: BACTERIA,URINE FEW /HPF (None Seen); MUCUS,URINE 1+ /LPF (None Seen); URINE AMORPHOUS URATE 2+ /HPF (None Seen); YEAST,URINE Moderate /HPF (None Seen)
[2020-04-22] MEDS: AMPICILLIN SODIUM 2 GM in NS 100 ML IV SCH ×3 (15:48→23:45)
[2020-04-22] MEDS: VECURONIUM BROMIDE 50 MG in NS 50 ML IV PRN (17:09)
[2020-04-22] MEDS: MORPHINE 2 MG/ML INJ. SYRINGE IVP PRN (20:00)
[2020-04-22] MEDS: SENNA 8.8 MG/5 ML UDC GT SCH (20:30)
[2020-04-23] VITALS (24 sets, daily range): BP systolic 115–173
[2020-04-23] MEDS: AMPICILLIN SODIUM 2 GM in NS 100 ML IV SCH ×6 (03:00→23:18)
[2020-04-23] MEDS ORDERED: HEPARIN SODIUM,PORCINE 5,000 UNITS/ML VIAL ONE ×3 (06:28→21:00)
[2020-04-23] MEDS: HEPARIN SODIUM,PORCINE 5,000 UNITS/ML VIAL SUBCUT SCH ×3 (06:53→21:06)
[2020-04-23] MEDS: methylPREDNISolone SOD SUCC 40 MG/ML VIAL IVP SCH ×2 (06:53→09:06)
[2020-04-23] MEDS: METOCLOPRAMIDE HCL 10 MG/2 ML VIAL IVP SCH ×4 (06:53→23:59)
[2020-04-23] MEDS: ALBUTEROL MDI INHALATION 8 GM INH INH SCH ×4 (08:13→19:37)
[2020-04-23] MEDS ORDERED: MIDAZOLAM IN NACL,ISO-OSMOT/PF 100 ML IV ONE (08:22)
[2020-04-23] MEDS: D5W 1,000 ML IV SCH ×2 (08:38→23:18)
[2020-04-23] MEDS ORDERED: DOCUSATE SODIUM 100 MG/10 ML UDC ONE (09:09)
[2020-04-23] MEDS: DOCUSATE SODIUM 100 MG/10 ML UDC PO SCH (09:12)
[2020-04-23] MEDS: POLYETHYLENE GLYCOL 3350, 17 GM/ POWD.PACK NG SCH ×2 (09:13→20:17)
[2020-04-23] MEDS: FUROSEMIDE 20 MG/2 ML VIAL IVP SCH ×2 (09:13→20:16)
[2020-04-23] MEDS: PEG 400/HYPROMELLOSE/GLYCERIN 15 ML DROPS OP SCH ×2 (09:14→20:17)
[2020-04-23] MEDS: PROPOFOL DRIP 100 ML IV PRN ×5 (09:29→18:58)
[2020-04-23] MEDS: MORPHINE I.V. DRIP 100 ML IV PRN (18:56)
[2020-04-23] MEDS: SENNA 8.8 MG/5 ML UDC GT SCH (21:00)
[2020-04-24] VITALS (31 sets, daily range): BP systolic 115–173
[2020-04-24] MEDS: PROPOFOL DRIP 100 ML IV PRN ×5 (01:43→22:14)
[2020-04-24] MEDS: AMPICILLIN SODIUM 2 GM in NS 100 ML IV SCH ×5 (03:30→21:39)
[2020-04-24] MEDS ORDERED: MIDAZOLAM IN NACL,ISO-OSMOT/PF 100 ML IV ONE ×2 (03:35→13:56)
[2020-04-24] MEDS: MIDAZOLAM IN NACL,ISO-OSMOT/PF 100 ML IV PRN (03:44)
[2020-04-24] MEDS ORDERED: MORPHINE I.V. DRIP 100 ML IV ONE ×2 (05:47→21:49)
[2020-04-24] MEDS ORDERED: HEPARIN SODIUM,PORCINE 5,000 UNITS/ML VIAL ONE ×3 (06:08→21:32)
[2020-04-24] MEDS: METOCLOPRAMIDE HCL 10 MG/2 ML VIAL IVP SCH ×3 (06:15→18:05)
[2020-04-24] MEDS: HEPARIN SODIUM,PORCINE 5,000 UNITS/ML VIAL SUBCUT SCH ×3 (06:20→21:43)
[2020-04-24] MEDS: MORPHINE I.V. DRIP 100 ML IV PRN ×2 (07:01→21:54)
[2020-04-24] MEDS: ALBUTEROL MDI INHALATION 8 GM INH INH SCH ×4 (07:22→19:34)
[2020-04-24 07:46] LABS: BASOPHILS % (AUTO) 0.7 % (0.0-2.0); EOSINOPHILS # (AUTO) 0.4 K/uL (0.0-0.4); EOSINOPHILS % (AUTO) 5.9 % (0.0-4.0); HEMATOCRIT 26.4 % (36-54); HEMOGLOBIN 8.6 g/dL (14.0-18.0); LYMPHOCYTES # (AUTO) 0.8 K/uL (1.0-5.5); LYMPHOCYTES % (AUTO) 11.9 % (20.5-51.5); MEAN CORPUSCULAR HEMOGLOBIN 29 pg (27-31); MEAN CORPUSCULAR HGB CONC 33 % (32-36); MEAN CORPUSCULAR VOLUME 88 fL (79.0-98.0); MONOCYTES # (AUTO) 0.3 K/uL (0.0-1.0); MONOCYTES % (AUTO) 3.8 % (1.7-9.3); NEUTROPHILS # (AUTO) 5.4 K/uL (1.8-7.7); NEUTROPHILS % (AUTO) 77.7 % (40.0-70.0); PLATELET COUNT (AUTO) 203 K/uL (130-430); RED CELL DISTRIBUTION WIDTH 15.1 % (9.0-15.0)
[2020-04-24 08:02] LABS: CALCIUM 8.7 mg/dL (8.4-11.0); CHLORIDE 104 mmol/L (98-107); GLUCOSE 146 mg/dL (70-99); SODIUM SERUM 142 mmol/L (136-145); UREA NITROGEN, BLOOD 49 mg/dL (8-21)
[2020-04-24 08:08] LABS: ALANINE AMINOTRANSFERASE 172 U/L (12-78); ALBUMIN 2.1 g/dL (3.4-4.8); ASPARTATE AMINOTRANSFERASE 47 U/L (10-37); TOTAL BILIRUBIN 0.4 mg/dL (0.0-1.0)
[2020-04-24 08:19] LABS: ANION GAP < 3 (5-15); GFR AFRICAN AMERICAN 97 mL/min (>90); POTASSIUM 2.7 mmol/L (3.5-5.1)
[2020-04-24] MEDS ORDERED: POTASSIUM CHLORIDE 40 MEQ in D5W 250 ML IV ONE (08:45)
[2020-04-24] MEDS ORDERED: KCL 40 mEq in 100 mL (PREMIX) 100 ML IV ONE (09:11)
[2020-04-24] MEDS: POLYETHYLENE GLYCOL 3350, 17 GM/ POWD.PACK NG SCH ×2 (09:17→21:00)
[2020-04-24] MEDS: FUROSEMIDE 20 MG/2 ML VIAL IVP SCH ×2 (09:17→21:40)
[2020-04-24] MEDS: methylPREDNISolone SOD SUCC 40 MG/ML VIAL IVP SCH (09:17)
[2020-04-24] MEDS: PEG 400/HYPROMELLOSE/GLYCERIN 15 ML DROPS OP SCH (09:19)
[2020-04-24] MEDS: DOCUSATE SODIUM 100 MG/10 ML UDC PO SCH (09:34)
[2020-04-24] MEDS ORDERED: DOCUSATE SODIUM 100 MG/10 ML UDC ONE (09:35)
[2020-04-24] MEDS: D5W 1,000 ML IV SCH (16:23)
[2020-04-24] MEDS: SENNA 8.8 MG/5 ML UDC GT SCH (21:41)
[2020-04-25] VITALS (30 sets, daily range): BP systolic 105–162
[2020-04-25] MEDS: PEG 400/HYPROMELLOSE/GLYCERIN 15 ML DROPS OP SCH ×3 (00:29→21:00)
[2020-04-25] MEDS: AMPICILLIN SODIUM 2 GM in NS 100 ML IV SCH ×7 (00:29→23:00)
[2020-04-25] MEDS: METOCLOPRAMIDE HCL 10 MG/2 ML VIAL IVP SCH ×4 (00:29→18:30)
[2020-04-25] MEDS: MIDAZOLAM IN NACL,ISO-OSMOT/PF 100 ML IV PRN ×2 (02:47→14:37)
[2020-04-25] MEDS ORDERED: MIDAZOLAM IN NACL,ISO-OSMOT/PF 100 ML IV ONE ×2 (02:50→14:30)
[2020-04-25] MEDS ORDERED: HEPARIN SODIUM,PORCINE 5,000 UNITS/ML VIAL ONE ×3 (05:40→21:35)
[2020-04-25] MEDS: HEPARIN SODIUM,PORCINE 5,000 UNITS/ML VIAL SUBCUT SCH ×3 (05:49→22:40)
[2020-04-25] MEDS: ALBUTEROL MDI INHALATION 8 GM INH INH SCH ×3 (08:42→15:38)
[2020-04-25] MEDS: methylPREDNISolone SOD SUCC 40 MG/ML VIAL IVP SCH (09:31)
[2020-04-25] MEDS: POLYETHYLENE GLYCOL 3350, 17 GM/ POWD.PACK NG SCH ×2 (09:31→21:00)
[2020-04-25] MEDS: FUROSEMIDE 20 MG/2 ML VIAL IVP SCH ×2 (09:32→21:00)
[2020-04-25] MEDS: DOCUSATE SODIUM 100 MG/10 ML UDC PO SCH (09:33)
[2020-04-25] MEDS ORDERED: DOCUSATE SODIUM 100 MG/10 ML UDC ONE (09:36)
[2020-04-25] MEDS: D5W 1,000 ML IV SCH (10:06)
[2020-04-25] MEDS: PROPOFOL DRIP 100 ML IV PRN ×3 (10:07→18:00)
[2020-04-25] MEDS: BALSAM PERU/CASTOR OIL 60 GM OINT...G. TP SCH (11:43)
[2020-04-25 20:42] LABS: BASOPHILS % (AUTO) 0.4 % (0.0-2.0); EOSINOPHILS # (AUTO) 0.1 K/uL (0.0-0.4); EOSINOPHILS % (AUTO) 2.6 % (0.0-4.0); HEMATOCRIT 24.9 % (36-54); HEMOGLOBIN 8.2 g/dL (14.0-18.0); LYMPHOCYTES # (AUTO) 0.5 K/uL (1.0-5.5); LYMPHOCYTES % (AUTO) 10.6 % (20.5-51.5); MEAN CORPUSCULAR HEMOGLOBIN 29 pg (27-31); MEAN CORPUSCULAR HGB CONC 33 % (32-36); MEAN CORPUSCULAR VOLUME 88 fL (79.0-98.0); MONOCYTES # (AUTO) 0.2 K/uL (0.0-1.0); MONOCYTES % (AUTO) 4.5 % (1.7-9.3); NEUTROPHILS # (AUTO) 4.1 K/uL (1.8-7.7); NEUTROPHILS % (AUTO) 81.9 % (40.0-70.0); PLATELET COUNT (AUTO) 230 K/uL (130-430); RED BLOOD CELL COUNT(AUTO) 2.83 MIL/uL (4.2-6.2); RED CELL DISTRIBUTION WIDTH 15.2 % (9.0-15.0); WHITE BLOOD COUNT (AUTO) 4.9 K/uL (4.8-10.8)
[2020-04-25] MEDS: SENNA 8.8 MG/5 ML UDC GT SCH (21:00)
[2020-04-25 21:14] LABS: ALBUMIN 2.1 g/dL (3.4-4.8); CALCIUM 8.9 mg/dL (8.4-11.0); CREATININE 0.94 mg/dL (0.55-1.30); POTASSIUM 3.7 mmol/L (3.5-5.1); TOTAL BILIRUBIN 0.5 mg/dL (0.0-1.0)
[2020-04-26] VITALS (34 sets, daily range): BP systolic 101–174
[2020-04-26] MEDS: METOCLOPRAMIDE HCL 10 MG/2 ML VIAL IVP SCH ×5 (00:37→23:28)
[2020-04-26] MEDS: MORPHINE I.V. DRIP 100 ML IV PRN (01:45)
[2020-04-26] MEDS: PROPOFOL DRIP 100 ML IV PRN ×4 (01:47→15:31)
[2020-04-26] MEDS ORDERED: MORPHINE I.V. DRIP 100 ML IV ONE ×2 (01:47→15:47)
[2020-04-26] MEDS: MIDAZOLAM IN NACL,ISO-OSMOT/PF 100 ML IV PRN ×2 (01:57→11:55)
[2020-04-26] MEDS ORDERED: MIDAZOLAM IN NACL,ISO-OSMOT/PF 100 ML IV ONE ×3 (01:59→21:43)
[2020-04-26] MEDS: AMPICILLIN SODIUM 2 GM in NS 100 ML IV SCH ×6 (03:24→23:28)
[2020-04-26] MEDS ORDERED: HEPARIN SODIUM,PORCINE 5,000 UNITS/ML VIAL ONE ×3 (05:54→20:52)
[2020-04-26] MEDS: HEPARIN SODIUM,PORCINE 5,000 UNITS/ML VIAL SUBCUT SCH ×3 (06:01→22:32)
[2020-04-26 07:05] LABS: ALBUMIN 2.2 g/dL (3.4-4.8); CREATININE 0.91 mg/dL (0.55-1.30); TOTAL BILIRUBIN 0.4 mg/dL (0.0-1.0)
[2020-04-26 07:34] LABS: HEMATOCRIT 24.4 % (36-54); HEMOGLOBIN 8.6 g/dL (14.0-18.0); MEAN CORPUSCULAR HEMOGLOBIN 31 pg (27-31); MEAN CORPUSCULAR HGB CONC 35 % (32-36); MEAN CORPUSCULAR VOLUME 88 fL (79.0-98.0); PLATELET COUNT (AUTO) 351 K/uL (130-430); RED BLOOD CELL COUNT(AUTO) 2.77 MIL/uL (4.2-6.2); RED CELL DISTRIBUTION WIDTH 15.2 % (9.0-15.0); WHITE BLOOD COUNT (AUTO) 6.6 K/uL (4.8-10.8)
[2020-04-26] MEDS: ALBUTEROL MDI INHALATION 8 GM INH INH SCH ×4 (07:50→19:02)
[2020-04-26] MEDS ORDERED: DOCUSATE SODIUM 100 MG/10 ML UDC ONE (07:56)
[2020-04-26] MEDS: POLYETHYLENE GLYCOL 3350, 17 GM/ POWD.PACK NG SCH ×2 (08:00→21:00)
[2020-04-26] MEDS: FUROSEMIDE 20 MG/2 ML VIAL IVP SCH ×2 (08:03→21:00)
[2020-04-26] MEDS: D5W 1,000 ML IV SCH (08:04)
[2020-04-26] MEDS: DOCUSATE SODIUM 100 MG/10 ML UDC PO SCH (08:05)
[2020-04-26] MEDS: PEG 400/HYPROMELLOSE/GLYCERIN 15 ML DROPS OP SCH ×2 (08:05→21:00)
[2020-04-26] MEDS: methylPREDNISolone SOD SUCC 40 MG/ML VIAL IVP SCH (08:05)
[2020-04-26] MEDS: BALSAM PERU/CASTOR OIL 60 GM OINT...G. TP SCH (08:06)
[2020-04-26 08:13] LABS: POTASSIUM 2.9 mmol/L (3.5-5.1)
[2020-04-26] MEDS ORDERED: KCL 40 mEq in 100 mL (PREMIX) 100 ML IV ONE (09:10)
[2020-04-26 09:11] LABS: PROTHROMBIN TIME 10.2 SECS (9.5-12.5)
[2020-04-26 12:01] LABS: BAND % (MANUAL) 10 % (0-6); BASOPHILS % (MANUAL) 0 % (0-2); EOSINOPHILS % (MANUAL) 6 % (0-7); LYMPHOCYTES % (MANUAL) 14 % (20-46); METAMYELOCYTES % 2 % (0-0); MONOCYTES % (MANUAL) 4 % (0-11)
[2020-04-26] MEDS: SENNA 8.8 MG/5 ML UDC GT SCH (21:00)
[2020-04-27] VITALS (31 sets, daily range): BP systolic 104–177
[2020-04-27] MEDS: AMPICILLIN SODIUM 2 GM in NS 100 ML IV SCH ×6 (03:00→23:47)
[2020-04-27] MEDS ORDERED: MORPHINE I.V. DRIP 100 ML IV ONE ×3 (03:28→21:10)
[2020-04-27] MEDS: D5W 1,000 ML IV SCH ×2 (04:45→23:48)
[2020-04-27] MEDS: MORPHINE I.V. DRIP 100 ML IV PRN (04:46)
[2020-04-27] MEDS: PROPOFOL DRIP 100 ML IV PRN ×4 (04:47→17:44)
[2020-04-27] MEDS ORDERED: HEPARIN SODIUM,PORCINE 5,000 UNITS/ML VIAL ONE ×2 (05:48→22:26)
[2020-04-27] MEDS ORDERED: MIDAZOLAM IN NACL,ISO-OSMOT/PF 100 ML IV ONE ×2 (06:00→14:09)
[2020-04-27] MEDS: METOCLOPRAMIDE HCL 10 MG/2 ML VIAL IVP SCH ×4 (07:10→23:47)
[2020-04-27] MEDS: ALBUTEROL MDI INHALATION 8 GM INH INH SCH ×3 (07:54→16:00)
[2020-04-27] MEDS ORDERED: IPRATROPIUM/ALBUTEROL SULFATE 3 ML AMPUL.NEB (DUONEB) ONE (08:00)
[2020-04-27] MEDS ORDERED: DOCUSATE SODIUM 100 MG/10 ML UDC ONE (08:34)
[2020-04-27] MEDS: methylPREDNISolone SOD SUCC 40 MG/ML VIAL IVP SCH (08:34)
[2020-04-27] MEDS: FUROSEMIDE 20 MG/2 ML VIAL IVP SCH ×2 (08:35→22:25)
[2020-04-27] MEDS: POLYETHYLENE GLYCOL 3350, 17 GM/ POWD.PACK NG SCH ×2 (08:35→22:25)
[2020-04-27] MEDS: DOCUSATE SODIUM 100 MG/10 ML UDC PO SCH (08:35)
[2020-04-27] MEDS: PEG 400/HYPROMELLOSE/GLYCERIN 15 ML DROPS OP SCH ×2 (08:36→22:26)
[2020-04-27] MEDS: BALSAM PERU/CASTOR OIL 60 GM OINT...G. TP SCH (08:36)
[2020-04-27] MEDS ORDERED: ROCURONIUM BROMIDE 10 MG/ML (ZEMURON) IV ONE (09:42)
[2020-04-27 09:44] LABS: CALCIUM 8.8 mg/dL (8.4-11.0); CREATININE 0.89 mg/dL (0.55-1.30)
[2020-04-27 09:58] LABS: POTASSIUM 2.9 mmol/L (3.5-5.1)
[2020-04-27] MEDS ORDERED: KCL 40 mEq in 100 mL (PREMIX) 100 ML IV ONE (10:24)
[2020-04-27] MEDS: POTASSIUM CHLORIDE 40 MEQ in NS 250 ML IV PRN (10:25)
[2020-04-27] MEDS ORDERED: KCL 20 mEq in 100 mL (PREMIX) 100 ML IV ONE ×2 (10:45→12:12)
[2020-04-27] MEDS: IPRATROPIUM/ALBUTEROL SULFATE 3 ML AMPUL.NEB (DUONEB) INH SCH ×2 (11:53→15:51)
[2020-04-27] MEDS: MIDAZOLAM IN NACL,ISO-OSMOT/PF 100 ML IV PRN (14:09)
[2020-04-27] MEDS: HEPARIN SODIUM,PORCINE 5,000 UNITS/ML VIAL SUBCUT SCH (22:23)
[2020-04-27] MEDS: SENNA 8.8 MG/5 ML UDC GT SCH (22:25)
[2020-04-28] VITALS (30 sets, daily range): BP systolic 90–187
[2020-04-28] MEDS ORDERED: MIDAZOLAM IN NACL,ISO-OSMOT/PF 100 ML IV ONE ×3 (02:15→22:58)
[2020-04-28] MEDS: AMPICILLIN SODIUM 2 GM in NS 100 ML IV SCH ×6 (03:00→22:52)
[2020-04-28] MEDS ORDERED: HEPARIN SODIUM,PORCINE 5,000 UNITS/ML VIAL ONE (05:35)
[2020-04-28] MEDS: METOCLOPRAMIDE HCL 10 MG/2 ML VIAL IVP SCH ×4 (05:36→23:01)
[2020-04-28 05:50] LABS: ALBUMIN 1.9 g/dL (3.4-4.8); CALCIUM 8.1 mg/dL (8.4-11.0); CREATININE 0.74 mg/dL (0.55-1.30); TOTAL BILIRUBIN 0.5 mg/dL (0.0-1.0)
[2020-04-28 06:01] LABS: POTASSIUM 2.9 mmol/L (3.5-5.1)
[2020-04-28] MEDS: POTASSIUM CHLORIDE 40 MEQ in NS 250 ML IV PRN (06:03)
[2020-04-28] MEDS ORDERED: KCL 40 mEq in 100 mL (PREMIX) 100 ML IV ONE (06:04)
[2020-04-28 06:22] LABS: BASOPHILS # (AUTO) 0.1 K/uL (0.0-0.2); BASOPHILS % (AUTO) 0.8 % (0.0-2.0); EOSINOPHILS # (AUTO) 0.3 K/uL (0.0-0.4); HEMATOCRIT 22.6 % (36-54); HEMOGLOBIN 7.7 g/dL (14.0-18.0); LYMPHOCYTES # (AUTO) 1.1 K/uL (1.0-5.5); LYMPHOCYTES % (AUTO) 17.1 % (20.5-51.5); MEAN CORPUSCULAR HEMOGLOBIN 30 pg (27-31); MEAN CORPUSCULAR HGB CONC 34 % (32-36); MEAN CORPUSCULAR VOLUME 89 fL (79.0-98.0); MONOCYTES # (AUTO) 0.3 K/uL (0.0-1.0); MONOCYTES % (AUTO) 5.2 % (1.7-9.3); NEUTROPHILS # (AUTO) 4.5 K/uL (1.8-7.7); NEUTROPHILS % (AUTO) 71.9 % (40.0-70.0); PLATELET COUNT (AUTO) 221 K/uL (130-430); RED BLOOD CELL COUNT(AUTO) 2.55 MIL/uL (4.2-6.2); RED CELL DISTRIBUTION WIDTH 15.3 % (9.0-15.0); WHITE BLOOD COUNT (AUTO) 6.2 K/uL (4.8-10.8)
[2020-04-28] MEDS ORDERED: MORPHINE I.V. DRIP 100 ML IV ONE ×2 (07:08→16:52)
[2020-04-28] MEDS: IPRATROPIUM/ALBUTEROL SULFATE 3 ML AMPUL.NEB (DUONEB) INH SCH ×3 (07:13→23:53)
[2020-04-28] MEDS ORDERED: KCL 20 mEq in D5W 1000 mL 1,000 ML IV SCH (08:30)
[2020-04-28] MEDS ORDERED: DOCUSATE SODIUM 100 MG/10 ML UDC ONE (08:40)
[2020-04-28] MEDS: DOCUSATE SODIUM 100 MG/10 ML UDC PO SCH (08:42)
[2020-04-28] MEDS: methylPREDNISolone SOD SUCC 40 MG/ML VIAL IVP SCH (08:43)
[2020-04-28] MEDS: FUROSEMIDE 20 MG/2 ML VIAL IVP SCH ×2 (08:43→21:45)
[2020-04-28] MEDS: PEG 400/HYPROMELLOSE/GLYCERIN 15 ML DROPS OP SCH ×2 (08:44→21:45)
[2020-04-28] MEDS: POLYETHYLENE GLYCOL 3350, 17 GM/ POWD.PACK NG SCH ×2 (08:44→21:45)
[2020-04-28] MEDS: BALSAM PERU/CASTOR OIL 60 GM OINT...G. TP SCH (08:44)
[2020-04-28] MEDS ORDERED: POTASSIUM CHLORIDE 20 MEQ/PKT PACKET PO ONE (09:15)
[2020-04-28] MEDS: PROPOFOL DRIP 100 ML IV PRN ×4 (09:20→23:10)
[2020-04-28] MEDS: MIDAZOLAM IN NACL,ISO-OSMOT/PF 100 ML IV PRN (13:17)
[2020-04-28 13:22] LABS: CALCIUM 8.7 mg/dL (8.4-11.0); CREATININE 0.91 mg/dL (0.55-1.30); POTASSIUM 4.6 mmol/L (3.5-5.1)
[2020-04-28] MEDS: MORPHINE I.V. DRIP 100 ML IV PRN (16:58)
[2020-04-28] MEDS: ALBUTEROL MDI INHALATION 8 GM INH INH SCH (20:50)
[2020-04-28] MEDS: SENNA 8.8 MG/5 ML UDC GT SCH (21:44)
[2020-04-28] MEDS: HEPARIN SODIUM,PORCINE 5,000 UNITS/ML VIAL SUBCUT SCH (22:00)
[2020-04-29] VITALS (33 sets, daily range): BP systolic 86–184
[2020-04-29] MEDS ORDERED: NALOXONE HCL 0.4 MG/ML AMP (NARCAN) IVP PRN
[2020-04-29] MEDS: hydrALAZINE HCL 20 MG/ML VIAL IVP PRN (00:27)
[2020-04-29] MEDS ORDERED: HEPARIN SODIUM,PORCINE 5,000 UNITS/ML VIAL ONE ×3 (00:43→23:04)
[2020-04-29] MEDS: MIDAZOLAM IN NACL,ISO-OSMOT/PF 100 ML IV PRN ×3 (00:53→23:40)
[2020-04-29] MEDS: MORPHINE I.V. DRIP 100 ML IV PRN ×3 (02:15→21:28)
[2020-04-29] MEDS: PROPOFOL DRIP 100 ML IV PRN ×4 (03:39→23:32)
[2020-04-29] MEDS: METOCLOPRAMIDE HCL 10 MG/2 ML VIAL IVP SCH ×3 (05:06→18:12)
[2020-04-29] MEDS: HEPARIN SODIUM,PORCINE 5,000 UNITS/ML VIAL SUBCUT SCH ×3 (05:07→23:07)
[2020-04-29 05:38] LABS: ALBUMIN 2.3 g/dL (3.4-4.8); CALCIUM 8.8 mg/dL (8.4-11.0); CREATININE 0.83 mg/dL (0.55-1.30); POTASSIUM 3.3 mmol/L (3.5-5.1); TOTAL BILIRUBIN 0.3 mg/dL (0.0-1.0)
[2020-04-29 06:56] LABS: C-REACTIVE PROTEIN QUANT 14.1 mg/dL (0-0.5)
[2020-04-29] MEDS: ALBUTEROL MDI INHALATION 8 GM INH INH SCH ×3 (07:00→15:00)
[2020-04-29 07:42] LABS: BASOPHILS % (AUTO) 0.5 % (0.0-2.0); EOSINOPHILS # (AUTO) 0.4 K/uL (0.0-0.4); HEMATOCRIT 24.3 % (36-54); LYMPHOCYTES # (AUTO) 1.2 K/uL (1.0-5.5); LYMPHOCYTES % (AUTO) 15.1 % (20.5-51.5); MEAN CORPUSCULAR HEMOGLOBIN 29 pg (27-31); MEAN CORPUSCULAR HGB CONC 33 % (32-36); MEAN CORPUSCULAR VOLUME 89 fL (79.0-98.0); MONOCYTES # (AUTO) 0.5 K/uL (0.0-1.0); MONOCYTES % (AUTO) 6.5 % (1.7-9.3); NEUTROPHILS # (AUTO) 5.5 K/uL (1.8-7.7); NEUTROPHILS % (AUTO) 72.9 % (40.0-70.0); PLATELET COUNT (AUTO) 234 K/uL (130-430); RED BLOOD CELL COUNT(AUTO) 2.74 MIL/uL (4.2-6.2); RED CELL DISTRIBUTION WIDTH 16.1 % (9.0-15.0); WHITE BLOOD COUNT (AUTO) 7.6 K/uL (4.8-10.8)
[2020-04-29] MEDS: IPRATROPIUM/ALBUTEROL SULFATE 3 ML AMPUL.NEB (DUONEB) INH SCH ×4 (08:26→19:57)
[2020-04-29 08:44] LABS: ERYTHROCYTE SEDIMENTATION RATE 119 MM/HR (0-15)
[2020-04-29] MEDS: methylPREDNISolone SOD SUCC 40 MG/ML VIAL IVP SCH (09:31)
[2020-04-29] MEDS: POLYETHYLENE GLYCOL 3350, 17 GM/ POWD.PACK NG SCH ×2 (09:31→20:49)
[2020-04-29] MEDS: DOCUSATE SODIUM 100 MG/10 ML UDC PO SCH (09:31)
[2020-04-29] MEDS ORDERED: DOCUSATE SODIUM 100 MG/10 ML UDC ONE (09:31)
[2020-04-29] MEDS: FUROSEMIDE 20 MG/2 ML VIAL IVP SCH ×2 (09:34→20:49)
[2020-04-29] MEDS: PEG 400/HYPROMELLOSE/GLYCERIN 15 ML DROPS OP SCH ×2 (09:34→20:49)
[2020-04-29] MEDS: BALSAM PERU/CASTOR OIL 60 GM OINT...G. TP SCH (09:35)
[2020-04-29] MEDS ORDERED: KCL 40 mEq in 100 mL (PREMIX) 100 ML IV ONE (10:19)
[2020-04-29] MEDS: POTASSIUM CHLORIDE 40 MEQ in NS 250 ML IV PRN (10:19)
[2020-04-29] MEDS ORDERED: DIPHENHYDRAMINE INJ 50 MG/ML VIAL IVP PRN (12:45)
[2020-04-29] MEDS: AMPICILLIN SODIUM 2 GM in NS 100 ML IV SCH ×2 (15:07→20:16)
[2020-04-29 18:51] LABS: CALCIUM 8.5 mg/dL (8.4-11.0); CHLORIDE 98 mmol/L (98-107); CREATININE 0.88 mg/dL (0.55-1.30); GLUCOSE 121 mg/dL (70-99); POTASSIUM 4.8 mmol/L (3.5-5.1); SODIUM SERUM 138 mmol/L (136-145); UREA NITROGEN, BLOOD 28 mg/dL (8-21)
[2020-04-29 18:59] LABS: GFR AFRICAN AMERICAN 125 mL/min (>90)
[2020-04-29 19:00] LABS: ANION GAP < 3 (5-15)
[2020-04-29 19:24] LABS: TRIGLYCERIDES 829 mg/dL (30-150)
[2020-04-29] MEDS: SENNA 8.8 MG/5 ML UDC GT SCH (20:50)
[2020-04-30] VITALS (31 sets, daily range): BP systolic 100–180
[2020-04-30] MEDS: AMPICILLIN SODIUM 2 GM in NS 100 ML IV SCH ×7 (00:35→23:41)
[2020-04-30] MEDS: METOCLOPRAMIDE HCL 10 MG/2 ML VIAL IVP SCH ×5 (00:37→23:42)
[2020-04-30] MEDS: HEPARIN SODIUM,PORCINE 5,000 UNITS/ML VIAL SUBCUT SCH ×3 (05:17→22:00)
[2020-04-30] MEDS ORDERED: HEPARIN SODIUM,PORCINE 5,000 UNITS/ML VIAL ONE ×2 (05:17→14:04)
[2020-04-30 05:30] LABS: BASOPHILS # (AUTO) 0.1 K/uL (0.0-0.2); BASOPHILS % (AUTO) 0.9 % (0.0-2.0); EOSINOPHILS # (AUTO) 0.4 K/uL (0.0-0.4); EOSINOPHILS % (AUTO) 4.9 % (0.0-4.0); HEMATOCRIT 24.4 % (36-54); HEMOGLOBIN 8.6 g/dL (14.0-18.0); LYMPHOCYTES # (AUTO) 1.5 K/uL (1.0-5.5); LYMPHOCYTES % (AUTO) 18.4 % (20.5-51.5); MEAN CORPUSCULAR HEMOGLOBIN 31 pg (27-31); MEAN CORPUSCULAR HGB CONC 35 % (32-36); MEAN CORPUSCULAR VOLUME 88 fL (79.0-98.0); MONOCYTES # (AUTO) 0.5 K/uL (0.0-1.0); MONOCYTES % (AUTO) 6.2 % (1.7-9.3); NEUTROPHILS # (AUTO) 5.7 K/uL (1.8-7.7); NEUTROPHILS % (AUTO) 69.6 % (40.0-70.0); PLATELET COUNT (AUTO) 222 K/uL (130-430); RED BLOOD CELL COUNT(AUTO) 2.76 MIL/uL (4.2-6.2); RED CELL DISTRIBUTION WIDTH 16.2 % (9.0-15.0); WHITE BLOOD COUNT (AUTO) 8.2 K/uL (4.8-10.8)
[2020-04-30 06:16] LABS: ALBUMIN 2.3 g/dL (3.4-4.8); CALCIUM 8.7 mg/dL (8.4-11.0); CREATININE 0.78 mg/dL (0.55-1.30); POTASSIUM 3.3 mmol/L (3.5-5.1); TOTAL BILIRUBIN 0.6 mg/dL (0.0-1.0)
[2020-04-30] MEDS: PROPOFOL DRIP 100 ML IV PRN ×4 (06:32→23:40)
[2020-04-30] MEDS: ALBUTEROL MDI INHALATION 8 GM INH INH SCH (07:00)
[2020-04-30] MEDS: MORPHINE I.V. DRIP 100 ML IV PRN ×2 (07:04→16:22)
[2020-04-30] MEDS: IPRATROPIUM/ALBUTEROL SULFATE 3 ML AMPUL.NEB (DUONEB) INH SCH ×3 (07:55→16:47)
[2020-04-30] MEDS: MIDAZOLAM IN NACL,ISO-OSMOT/PF 100 ML IV PRN ×2 (08:43→16:21)
[2020-04-30] MEDS: POLYETHYLENE GLYCOL 3350, 17 GM/ POWD.PACK NG SCH (09:24)
[2020-04-30] MEDS: methylPREDNISolone SOD SUCC 40 MG/ML VIAL IVP SCH (09:24)
[2020-04-30] MEDS: DOCUSATE SODIUM 100 MG/10 ML UDC PO SCH (09:25)
[2020-04-30] MEDS ORDERED: DOCUSATE SODIUM 100 MG/10 ML UDC ONE (09:25)
[2020-04-30] MEDS: FUROSEMIDE 20 MG/2 ML VIAL IVP SCH (09:25)
[2020-04-30] MEDS: PEG 400/HYPROMELLOSE/GLYCERIN 15 ML DROPS OP SCH (09:26)
[2020-04-30] MEDS: BALSAM PERU/CASTOR OIL 60 GM OINT...G. TP SCH (09:26)
[2020-04-30] MEDS: POTASSIUM CHLORIDE 40 MEQ in NS 250 ML IV PRN (10:31)
[2020-04-30] MEDS ORDERED: KCL 40 mEq in 100 mL (PREMIX) 100 ML IV ONE (21:33)
[2020-05-01] VITALS (32 sets, daily range): BP systolic 101–153
[2020-05-01] MEDS: MORPHINE I.V. DRIP 100 ML IV PRN ×2 (03:24→13:02)
[2020-05-01] MEDS: PROPOFOL DRIP 100 ML IV PRN ×3 (03:28→16:42)
[2020-05-01] MEDS: AMPICILLIN SODIUM 2 GM in NS 100 ML IV SCH ×6 (04:29→23:00)
[2020-05-01] MEDS: HEPARIN SODIUM,PORCINE 5,000 UNITS/ML VIAL SUBCUT SCH ×3 (05:23→21:38)
[2020-05-01] MEDS: METOCLOPRAMIDE HCL 10 MG/2 ML VIAL IVP SCH ×3 (05:23→18:16)
[2020-05-01] MEDS ORDERED: HEPARIN SODIUM,PORCINE 5,000 UNITS/ML VIAL ONE ×3 (05:26→21:14)
[2020-05-01] MEDS: IPRATROPIUM/ALBUTEROL SULFATE 3 ML AMPUL.NEB (DUONEB) INH SCH ×4 (07:17→19:00)
[2020-05-01] MEDS ORDERED: DOCUSATE SODIUM 100 MG/10 ML UDC ONE (08:12)
[2020-05-01] MEDS: methylPREDNISolone SOD SUCC 40 MG/ML VIAL IVP SCH (08:37)
[2020-05-01] MEDS: FUROSEMIDE 20 MG/2 ML VIAL IVP SCH ×2 (08:37→21:37)
[2020-05-01] MEDS: POLYETHYLENE GLYCOL 3350, 17 GM/ POWD.PACK NG SCH ×2 (08:37→21:37)
[2020-05-01] MEDS: PEG 400/HYPROMELLOSE/GLYCERIN 15 ML DROPS OP SCH ×2 (08:37→21:37)
[2020-05-01] MEDS: DOCUSATE SODIUM 100 MG/10 ML UDC PO SCH (08:38)
[2020-05-01] MEDS: BALSAM PERU/CASTOR OIL 60 GM OINT...G. TP SCH (08:38)
[2020-05-01 09:17] LABS: CALCIUM 8.9 mg/dL (8.4-11.0); CREATININE 0.74 mg/dL (0.55-1.30); POTASSIUM 3.6 mmol/L (3.5-5.1)
[2020-05-01] MEDS: MIDAZOLAM IN NACL,ISO-OSMOT/PF 100 ML IV PRN (16:40)
[2020-05-01] MEDS: ALBUTEROL MDI INHALATION 8 GM INH INH SCH (19:00)
[2020-05-01] MEDS: SENNA 8.8 MG/5 ML UDC GT SCH (21:37)
[2020-05-02] VITALS (35 sets, daily range): BP systolic 102–168
[2020-05-02] MEDS: METOCLOPRAMIDE HCL 10 MG/2 ML VIAL IVP SCH ×4 (00:32→17:10)
[2020-05-02] MEDS: AMPICILLIN SODIUM 2 GM in NS 100 ML IV SCH ×5 (04:17→18:39)
[2020-05-02] MEDS ORDERED: HEPARIN SODIUM,PORCINE 5,000 UNITS/ML VIAL ONE ×3 (05:16→20:36)
[2020-05-02] MEDS: MIDAZOLAM IN NACL,ISO-OSMOT/PF 100 ML IV PRN ×2 (05:58→13:55)
[2020-05-02] MEDS: MORPHINE I.V. DRIP 100 ML IV PRN ×2 (05:59→13:57)
[2020-05-02] MEDS: HEPARIN SODIUM,PORCINE 5,000 UNITS/ML VIAL SUBCUT SCH ×3 (06:00→21:22)
[2020-05-02] MEDS: IPRATROPIUM/ALBUTEROL SULFATE 3 ML AMPUL.NEB (DUONEB) INH SCH ×4 (07:15→20:18)
[2020-05-02] MEDS: FUROSEMIDE 20 MG/2 ML VIAL IVP SCH ×2 (08:07→21:22)
[2020-05-02] MEDS: methylPREDNISolone SOD SUCC 40 MG/ML VIAL IVP SCH (08:08)
[2020-05-02] MEDS: PEG 400/HYPROMELLOSE/GLYCERIN 15 ML DROPS OP SCH ×2 (08:09→21:22)
[2020-05-02] MEDS: DOCUSATE SODIUM 100 MG/10 ML UDC PO SCH (08:09)
[2020-05-02] MEDS: BALSAM PERU/CASTOR OIL 60 GM OINT...G. TP SCH (08:10)
[2020-05-02] MEDS: POLYETHYLENE GLYCOL 3350, 17 GM/ POWD.PACK NG SCH ×2 (08:11→21:22)
[2020-05-02] MEDS ORDERED: NALOXONE HCL 0.4 MG/ML AMP (NARCAN) IVP PRN (08:15)
[2020-05-02] MEDS ORDERED: DOCUSATE SODIUM 100 MG/10 ML UDC ONE (08:25)
[2020-05-02] MEDS ORDERED: fentaNYL 25 MCG/HR PATCH TD SCH (08:30)
[2020-05-02 09:03] LABS: CALCIUM 9.1 mg/dL (8.4-11.0); CREATININE 0.68 mg/dL (0.55-1.30); POTASSIUM 3.3 mmol/L (3.5-5.1)
[2020-05-02] MEDS: PROPOFOL DRIP 100 ML IV PRN ×3 (10:28→16:27)
[2020-05-02] MEDS: LORazepam 1 MG TABLET PO SCH ×2 (10:50→21:22)
[2020-05-02] MEDS ORDERED: KCL 40 mEq in 100 mL (PREMIX) 100 ML IV ONE (10:58)
[2020-05-02] MEDS: POTASSIUM CHLORIDE 40 MEQ in NS 250 ML IV PRN (11:02)
[2020-05-02] MEDS: VECURONIUM BROMIDE 50 MG in NS 50 ML IV PRN (15:08)
[2020-05-02] MEDS: ALBUTEROL MDI INHALATION 8 GM INH INH SCH (19:00)
[2020-05-02] MEDS: SENNA 8.8 MG/5 ML UDC GT SCH (21:21)
[2020-05-03] VITALS (34 sets, daily range): BP systolic 94–163
[2020-05-03] MEDS: METOCLOPRAMIDE HCL 10 MG/2 ML VIAL IVP SCH ×4 (00:07→14:14)
[2020-05-03] MEDS: AMPICILLIN SODIUM 2 GM in NS 100 ML IV SCH ×7 (00:07→22:04)
[2020-05-03] MEDS: PROPOFOL DRIP 100 ML IV PRN ×7 (00:09→22:08)
[2020-05-03] MEDS: MIDAZOLAM IN NACL,ISO-OSMOT/PF 100 ML IV PRN ×3 (00:10→16:22)
[2020-05-03] MEDS: MORPHINE I.V. DRIP 100 ML IV PRN ×4 (00:11→21:14)
[2020-05-03] MEDS: HEPARIN SODIUM,PORCINE 5,000 UNITS/ML VIAL SUBCUT SCH ×3 (05:50→21:11)
[2020-05-03 06:02] LABS: BASOPHILS # (AUTO) 0.1 K/uL (0.0-0.2); BASOPHILS % (AUTO) 0.9 % (0.0-2.0); EOSINOPHILS # (AUTO) 0.4 K/uL (0.0-0.4); EOSINOPHILS % (AUTO) 5.8 % (0.0-4.0); HEMOGLOBIN 7.8 g/dL (14.0-18.0); MEAN CORPUSCULAR HEMOGLOBIN 30 pg (27-31); MEAN CORPUSCULAR HGB CONC 34 % (32-36); MEAN CORPUSCULAR VOLUME 88 fL (79.0-98.0); MONOCYTES # (AUTO) 0.5 K/uL (0.0-1.0); MONOCYTES % (AUTO) 6.4 % (1.7-9.3); NEUTROPHILS # (AUTO) 5.5 K/uL (1.8-7.7); NEUTROPHILS % (AUTO) 72.9 % (40.0-70.0); PLATELET COUNT (AUTO) 245 K/uL (130-430); RED CELL DISTRIBUTION WIDTH 16.4 % (9.0-15.0); WHITE BLOOD COUNT (AUTO) 7.5 K/uL (4.8-10.8)
[2020-05-03 06:16] LABS: ALBUMIN 2.2 g/dL (3.4-4.8); CALCIUM 8.8 mg/dL (8.4-11.0); CREATININE 0.71 mg/dL (0.55-1.30); POTASSIUM 3.3 mmol/L (3.5-5.1); TOTAL BILIRUBIN 0.3 mg/dL (0.0-1.0)
[2020-05-03] MEDS: POTASSIUM CHLORIDE 40 MEQ in NS 250 ML IV PRN (06:37)
[2020-05-03] MEDS ORDERED: KCL 40 mEq in 100 mL (PREMIX) 100 ML IV ONE (06:40)
[2020-05-03] MEDS ORDERED: HEPARIN SODIUM,PORCINE 5,000 UNITS/ML VIAL ONE ×3 (06:41→21:10)
[2020-05-03] MEDS: IPRATROPIUM/ALBUTEROL SULFATE 3 ML AMPUL.NEB (DUONEB) INH SCH ×4 (07:00→19:34)
[2020-05-03] MEDS: ALBUTEROL MDI INHALATION 8 GM INH INH SCH ×2 (07:00→11:00)
[2020-05-03] MEDS: POLYETHYLENE GLYCOL 3350, 17 GM/ POWD.PACK NG SCH ×2 (09:00→20:47)
[2020-05-03] MEDS: DOCUSATE SODIUM 100 MG/10 ML UDC PO SCH (09:00)
[2020-05-03] MEDS: methylPREDNISolone SOD SUCC 40 MG/ML VIAL IVP SCH (09:37)
[2020-05-03] MEDS: PEG 400/HYPROMELLOSE/GLYCERIN 15 ML DROPS OP SCH ×2 (09:37→21:00)
[2020-05-03] MEDS: LORazepam 1 MG TABLET PO SCH ×2 (09:39→20:48)
[2020-05-03] MEDS: BALSAM PERU/CASTOR OIL 60 GM OINT...G. TP SCH (09:40)
[2020-05-03] MEDS: hydrALAZINE HCL 20 MG/ML VIAL IVP PRN (12:10)
[2020-05-03] MEDS: LABETALOL 100 MG/ 20ML VIAL IVP PRN (12:52)
[2020-05-03] MEDS: LORazepam 2 MG/ML VIAL IVP PRN ×2 (13:21→16:23)
[2020-05-03] MEDS ORDERED: ACETAMINOPHEN 650 MG/20.3 ML UDC ONE (14:22)
[2020-05-03] MEDS: SENNA 8.8 MG/5 ML UDC GT SCH (20:47)
[2020-05-04] VITALS (18 sets, daily range): BP systolic 76–175
[2020-05-04] MEDS: METOCLOPRAMIDE HCL 10 MG/2 ML VIAL IVP SCH ×3 (00:30→12:00)
[2020-05-04] MEDS: PROPOFOL DRIP 100 ML IV PRN ×5 (01:47→16:05)
[2020-05-04] MEDS: MIDAZOLAM IN NACL,ISO-OSMOT/PF 100 ML IV PRN ×2 (01:49→11:54)
[2020-05-04] MEDS: AMPICILLIN SODIUM 2 GM in NS 100 ML IV SCH ×3 (03:07→11:43)
[2020-05-04] MEDS: MORPHINE I.V. DRIP 100 ML IV PRN ×3 (03:10→13:19)
[2020-05-04] MEDS ORDERED: HEPARIN SODIUM,PORCINE 5,000 UNITS/ML VIAL ONE ×2 (05:13→14:37)
[2020-05-04] MEDS: HEPARIN SODIUM,PORCINE 5,000 UNITS/ML VIAL SUBCUT SCH (05:14)
[2020-05-04 06:54] LABS: BASOPHILS % (AUTO) 0.6 % (0.0-2.0); EOSINOPHILS # (AUTO) 0.4 K/uL (0.0-0.4); EOSINOPHILS % (AUTO) 6.3 % (0.0-4.0); HEMATOCRIT 22.1 % (36-54); HEMOGLOBIN 7.3 g/dL (14.0-18.0); LYMPHOCYTES # (AUTO) 1.4 K/uL (1.0-5.5); LYMPHOCYTES % (AUTO) 20.8 % (20.5-51.5); MEAN CORPUSCULAR HEMOGLOBIN 30 pg (27-31); MEAN CORPUSCULAR HGB CONC 33 % (32-36); MEAN CORPUSCULAR VOLUME 89 fL (79.0-98.0); MONOCYTES # (AUTO) 0.4 K/uL (0.0-1.0); MONOCYTES % (AUTO) 6.4 % (1.7-9.3); NEUTROPHILS # (AUTO) 4.4 K/uL (1.8-7.7); NEUTROPHILS % (AUTO) 65.9 % (40.0-70.0); PLATELET COUNT (AUTO) 227 K/uL (130-430); RED BLOOD CELL COUNT(AUTO) 2.49 MIL/uL (4.2-6.2); RED CELL DISTRIBUTION WIDTH 16.7 % (9.0-15.0); WHITE BLOOD COUNT (AUTO) 6.7 K/uL (4.8-10.8)
[2020-05-04 07:06] LABS: ALBUMIN 2.1 g/dL (3.4-4.8); CALCIUM 9.2 mg/dL (8.4-11.0); CREATININE 0.67 mg/dL (0.55-1.30); POTASSIUM 3.6 mmol/L (3.5-5.1); TOTAL BILIRUBIN 0.4 mg/dL (0.0-1.0)
[2020-05-04] MEDS: IPRATROPIUM/ALBUTEROL SULFATE 3 ML AMPUL.NEB (DUONEB) INH SCH ×3 (07:42→17:43)
[2020-05-04] MEDS: POLYETHYLENE GLYCOL 3350, 17 GM/ POWD.PACK NG SCH (08:36)
[2020-05-04] MEDS: methylPREDNISolone SOD SUCC 40 MG/ML VIAL IVP SCH (08:36)
[2020-05-04] MEDS: LORazepam 1 MG TABLET PO SCH (08:36)
[2020-05-04] MEDS: PEG 400/HYPROMELLOSE/GLYCERIN 15 ML DROPS OP SCH (08:36)
[2020-05-04] MEDS: DOCUSATE SODIUM 100 MG/10 ML UDC PO SCH (08:36)
[2020-05-04] MEDS: BALSAM PERU/CASTOR OIL 60 GM OINT...G. TP SCH (08:37)
[2020-05-04] MEDS ORDERED: FUROSEMIDE 20 MG/2 ML VIAL IVP SCH (09:00)
[2020-05-04] MEDS: VECURONIUM BROMIDE 50 MG in NS 50 ML IV PRN (10:25)
[2020-05-04] MEDS: hydrALAZINE HCL 20 MG/ML VIAL IVP PRN (12:23)
[2020-05-04] MEDS: LORazepam 2 MG/ML VIAL IVP PRN (12:29)
[2020-05-04] MEDS ORDERED: ACETAMINOPHEN 650 MG/20.3 ML UDC ONE (14:48)
[2020-05-04] MEDS ORDERED: NOREPINEPHRINE 4 MG/4 ML VIAL IV ONE (16:20)
[2020-05-04] MEDS ORDERED: NOREPINEPHRINE BITARTRATE 8 MG in NS 242 ML IV PRN (16:30)
[2020-05-04 16:49] LABS: CREATININE 1.27 mg/dL (0.55-1.30)
[2020-05-04 17:03] LABS: CALCIUM 12.8 mg/dL (8.4-11.0); POTASSIUM 6.8 mmol/L (3.5-5.1)
[2020-05-04 17:04] LABS: TOTAL BILIRUBIN 0.6 mg/dL (0.0-1.0)
[2020-05-04 17:05] LABS: ALBUMIN 1.8 g/dL (3.4-4.8)
== END 2020-05-04 16:49 | DRG 870 ==
LOC: SED 14:26 → SIC 18:02
PROVIDERS: ADMIT Internal Medicine Hospice and Palliative Medicine; ATTEND Internal Medicine Hospice and Palliative Medicine
PROC: XW033E5 Introduction of Remdesivir Anti-infective into Peripheral Vein, Percutaneous Approach, New Technology Group 5 (ICD-10-PCS; 2020-03-25)
PROC: XW13325 Transfusion of Convalescent Plasma (Nonautologous) into Peripheral Vein, Percutaneous Approach, New Technology Group 5 (ICD-10-PCS; 2020-03-26)
PROC: 05HY33Z Insertion of Infusion Device into Upper Vein, Percutaneous Approach (ICD-10-PCS; 2020-03-26)
PROC: 5A09357 Assistance with Respiratory Ventilation, Less than 24 Consecutive Hours, Continuous Positive Airway Pressure (ICD-10-PCS; 2020-03-26)
PROC: 5A0935A Assistance with Respiratory Ventilation, Less than 24 Consecutive Hours, High Flow/Velocity Cannula (ICD-10-PCS; 2020-03-27)
PROC: 5A09357 Assistance with Respiratory Ventilation, Less than 24 Consecutive Hours, Continuous Positive Airway Pressure (ICD-10-PCS; 2020-03-27)
PROC: 5A09457 Assistance with Respiratory Ventilation, 24-96 Consecutive Hours, Continuous Positive Airway Pressure (ICD-10-PCS; 2020-03-27)
PROC: 5A0935A Assistance with Respiratory Ventilation, Less than 24 Consecutive Hours, High Flow/Velocity Cannula (ICD-10-PCS; 2020-03-30)
PROC: 5A09457 Assistance with Respiratory Ventilation, 24-96 Consecutive Hours, Continuous Positive Airway Pressure (ICD-10-PCS; 2020-03-31)
PROC: 5A1955Z Respiratory Ventilation, Greater than 96 Consecutive Hours (ICD-10-PCS; 2020-04-02)
PROC: 0BH17EZ Insertion of Endotracheal Airway into Trachea, Via Natural or Artificial Opening (ICD-10-PCS; 2020-04-02)
PROC: 02HV33Z Insertion of Infusion Device into Superior Vena Cava, Percutaneous Approach (ICD-10-PCS; 2020-04-03)
PROC: B548ZZA Ultrasonography of Superior Vena Cava, Guidance (ICD-10-PCS; 2020-04-03)
PROC: 5A1D70Z Performance of Urinary Filtration, Intermittent, Less than 6 Hours Per Day (ICD-10-PCS; 2020-04-03)
PROC: 5A1D70Z Performance of Urinary Filtration, Intermittent, Less than 6 Hours Per Day (ICD-10-PCS; 2020-04-04)
PROC: 5A1D70Z Performance of Urinary Filtration, Intermittent, Less than 6 Hours Per Day (ICD-10-PCS; 2020-04-06)
PROC: 5A1D70Z Performance of Urinary Filtration, Intermittent, Less than 6 Hours Per Day (ICD-10-PCS; 2020-04-07)
PROC: 5A1D70Z Performance of Urinary Filtration, Intermittent, Less than 6 Hours Per Day (ICD-10-PCS; 2020-04-08)
PROC: 5A1D70Z Performance of Urinary Filtration, Intermittent, Less than 6 Hours Per Day (ICD-10-PCS; 2020-04-09)
PROC: 5A1D70Z Performance of Urinary Filtration, Intermittent, Less than 6 Hours Per Day (ICD-10-PCS; 2020-04-11)
PROC: 5A1D70Z Performance of Urinary Filtration, Intermittent, Less than 6 Hours Per Day (ICD-10-PCS; 2020-04-13)
PROC: 5A1D70Z Performance of Urinary Filtration, Intermittent, Less than 6 Hours Per Day (ICD-10-PCS; 2020-04-14)
PROC: 5A1D70Z Performance of Urinary Filtration, Intermittent, Less than 6 Hours Per Day (ICD-10-PCS; 2020-04-16)
PROC: 5A1D70Z Performance of Urinary Filtration, Intermittent, Less than 6 Hours Per Day (ICD-10-PCS; 2020-04-18)
PROC: 02HV33Z Insertion of Infusion Device into Superior Vena Cava, Percutaneous Approach (ICD-10-PCS; 2020-04-26)
PROC: 0BH17EZ Insertion of Endotracheal Airway into Trachea, Via Natural or Artificial Opening (ICD-10-PCS; 2020-04-27)
PROC: 5A12012 Performance of Cardiac Output, Single, Manual (ICD-10-PCS; 2020-05-02)
PROC: 30233N1 Transfusion of Nonautologous Red Blood Cells into Peripheral Vein, Percutaneous Approach (ICD-10-PCS; principal; 2020-05-04)
DX: A41.81 Sepsis due to Enterococcus (principal); J12.82 Pneumonia due to coronavirus disease 2019; U07.1 COVID-19; N17.0 Acute kidney failure with tubular necrosis; J80 Acute respiratory distress syndrome; E43 Unspecified severe protein-calorie malnutrition; E87.2 Acidosis; G93.40 Encephalopathy, unspecified; Z99.11 Dependence on respirator [ventilator] status; D64.9 Anemia, unspecified; J98.2 Interstitial emphysema; I46.9 Cardiac arrest, cause unspecified; K75.9 Inflammatory liver disease, unspecified; R74.01 Elevation of levels of liver transaminase levels; E66.01 Morbid (severe) obesity due to excess calories; R00.1 Bradycardia, unspecified; R73.9 Hyperglycemia, unspecified; E83.41 Hypermagnesemia; E83.39 Other disorders of phosphorus metabolism; T38.0X5A Adverse effect of glucocorticoids and synthetic analogues, initial encounter; Y92.238 Other place in hospital as the place of occurrence of the external cause; E87.6 Hypokalemia; D72.829 Elevated white blood cell count, unspecified; R13.10 Dysphagia, unspecified; E83.51 Hypocalcemia; E87.5 Hyperkalemia; I10 Essential (primary) hypertension; Z87.891 Personal history of nicotine dependence; Z99.2 Dependence on renal dialysis; Z68.30 Body mass index [BMI] 30.0-30.9, adult; Z79.899 Other long term (current) drug therapy
CPT/HCPCS: 36415; 36600; 71045; 71250-TC; 74018; 76376; 80048; 80053; 80074; 80202-TC; 81000-TC; 82550-TC; 82553-TC; 82728; 82803-TC; 83605; 83615-TC; 83735-TC; 83880; 84100-TC; 84478-TC; 84484; 85007; 85025; 85027; 85379; 85384-TC; 85610-TC; 85651-TC; 85730-TC; 86140; 86480; 86886; 86900; 86901; 86920; 87040-TC; 87081; 87086; 87186-TC; 90935; 90937; 92950; 93005; 94002; 94003; 94640; 94660; 96365; 96366; 96367; 96372; 96375; 96376; 99291; A6209; C1751; J0290; J0360; J0456; J0610; J0692; J0696; J1030; J1100; J1200; J1265; J1644; J1650; J1940; J2060; J2270; J2704; J2765; J3370; J3480; J3490; J7030; J7042; J7050; J7060; J7613; P9017; P9021; U0003